=== PATIENT | male | born 1995 | race Caucasian/White ===

== ENCOUNTER 2020-12-21 16:37 | Emergency (ER) | payer SELFPAY ==
--- OUTSIDE RECORDS SUMMARY | 2020-12-21 17:07 | XMS REPORT | Continuity of Care Document ---
:1995 Author Organization [facility] t Address [address] [place] [address] Care Team Providers Name Role Phone Humberto MARTIN Attending Clinician Jordan Peña NP Attending Clinician Doctor Unassigned, Name Attending Clinician Unavailable Problems This patient has no known problems. Allergies, Adverse Reactions, Alerts This patient has no known allergies or adverse reactions. Medications This patient has no known medications. Procedures This patient has no known procedures. Encounters Start End Encounter Admission Attending Care Care Encounter Source Date/Time Date/Time Type Type Clinicians Facility Department ID 2020-04-18 2020-04-18 [id number] 03:14:19 04:37:00 Darian Beck [id number] [place] [id number] [place] [id number] 2020-01-13 2020-01-14 Emergency Casey [facility] [id number] 22:34:02 00:22:00 Stella Beck [id number] [place] [id number] [place] [id number] 2020-01-13 2020-01-13 Orders Doctor MARIANELA [id number] 00:00:00 00:00:00 Only Unassigned, ROSALINO [id number] [place] [id number] 2019-06-23 2019-06-23 Emergency [facility] [id number] 19:50:03 21:26:00 Stella Beck [id number] [place] [id number] [place] [id number] Results This patient has no known results.
[2020-12-21 18:17] LABS: Absolute Lymphocytes (CBC) 1.5 K/uL (0.7-4.9); Basophils % 0.4 % (0-1.3); Hematocrit 39.3 % (39.6-49.0); Lymphocytes % 19.7 % (15.3-44.8); RBC Red Blood Cell Count 4.53 M/uL (4.33-5.43)
[2020-12-21 18:18] LABS: Protime INR 1.02
--- NOTE | 2020-12-21 18:34 | RAD REPORT ---
EXAM DESCRIPTION: Cande Single View12/21/2020 6:19 pm CLINICAL HISTORY: Syncope COMPARISON: none FINDINGS: The lungs appear clear of acute infiltrate. The heart is normal size IMPRESSION: No acute abnormalities displayed
[2020-12-21 18:36] LABS: ALT/SGPT 17 U/L (12-78); AST/SGOT 16 U/L (15-37); Albumin 3.9 g/dL (3.4-5.0); Alkaline Phosphatase 79 U/L (45-117); BUN Blood Urea Nitrogen 10 mg/dL (7-18); Bicarbonate 30 mmol/L (21-32); Bilirubin Direct 0.3 mg/dL (0-0.2); Bilirubin Total 1.7 mg/dL (0.2-1.0); Glucose Level 86 mg/dL (74-106); Magnesium 2.1 mg/dL (1.8-2.4); NT PRO-BNP 19 pg/mL (<125); Potassium 4.2 mmol/L (3.5-5.1); Protein, Total 7.7 g/dL (6.4-8.2); Sodium Level 139 mmol/L (136-145); Troponin (Emerg Dept Use Only) < 0.02 ng/mL (0.0-0.045)
--- NOTE | 2020-12-21 19:02 | ER ---
Nurse's Notes [facility] Name: Joe Velasquez Age: 25 yrs Sex: Male : 1995 Arrival Date: 12/21/2020 Time: 16:40 Bed 13 Private MD: Diagnosis: Syncope and collapse Presentation: 12/21 16:53 Chief complaint: Patient states: "about an hour ago I got real light headed and both my jd3 hands are feeling really weak and my legs feel like lead.". Coronavirus screen: cough unrelated to allergies, Client presents with at least one sign or symptom that may indicate coronavirus-19. Standard/surgical mask placed on the client. Provider contacted for isolation considerations. Ebola Screen: Patient negative for fever greater than or equal to 101.5 degrees Fahrenheit, and additional compatible Ebola Virus Disease symptoms. Initial Sepsis Screen: Does the patient meet any 2 criteria? No. Patient's initial sepsis screen is negative. Does the patient have a suspected source of infection? No. Patient's initial sepsis screen is negative. Risk Assessment: Do you want to hurt yourself or someone else? Patient reports no desire to harm self or others. Onset of symptoms was December 21, 2020. 16:53 Method Of Arrival: Ambulatory jd3 16:53 Acuity: FABRIZIO 3 jd3 Triage Assessment: 19:31 General: Appears in no apparent distress. Behavior is calm, cooperative, appropriate ll2 for age. Historical: - Allergies: 16:55 No Known Allergies; jd3 - Home Meds: 16:55 None [Active]; jd3 - PMHx: 16:55 testicular cyste; jd3 - PSHx: 16:55 None; jd3 - Immunization history:: Adult Immunizations up to date. - Social history:: Smoking status: Patient/guardian denies using tobacco, Stopped _ months ago 6. Screenin:30 Abuse screen: Denies threats or abuse. Nutritional screening: No deficits noted. ll2 Tuberculosis screening: No symptoms or risk factors identified. Fall Risk None identified. Vital Signs: 16:55 BP 118 / 75; Pulse 90; Resp 17 S; Temp 98.3(TE); Pulse Ox 100% on R/A; Weight 72.57 kg jd3 (R); Height 5 ft. 11 in. (180.34 cm) (R); Pain 0/10; 18:31 BP 112 / 65; Pulse 57; Resp 15; Pulse Ox 100% on R/A; 5 16:55 Body Mass Index 22.32 (72.57 kg, 180.34 cm) [facility] ED Course: 16:40 Patient arrived in ED. as 16:54 Triage completed. [facility] 16:56 Arm band placed on. [facility] 16:58 Jimenez Chambers PA is PHCP. [facility] 16:58 Cornelius Crowley MD is Attending Physician. [facility] 17:13 Parviz Canchola, RN is Primary Nurse. bp 18:17 Patient has correct armband on for positive identification. Bed in low position. Call [facility] light in reach. Side rails up X2. Warm blanket given. youth nutritional monitor on. Pulse ox on. NIBP on. 18:18 EKG done, by ED staff, reviewed by Cornelius Crowley MD. [facility] 18:19 XRAY Chest (1 view) In Process Unspecified. EDMS 19:30 No provider procedures requiring assistance completed. IV discontinued, intact, ll2 bleeding controlled, No redness/swelling at site. Pressure dressing applied. Administered Medications: No medications were administered Outcome: 19:02 Discharge ordered by MD. [facility] 19:30 Discharged to home ambulatory. ll2 19:30 Condition: stable 19:30 Discharge instructions given to patient, Instructed on discharge instructions, follow up and referral plans. Demonstrated understanding of instructions, follow-up care. 19:31 Patient left the ED. ll2 Signatures: Dispatcher [employer] EDPR Jimenez Chambers PA PA Jamia Jackson Maria [facility] Juan Trevino RN RN [facility] Parviz Canchola, RN RN Mela Rodrigez, AYUSH RN ll2 Corrections: (The following items were deleted from the chart) 17:31 16:53 Acuity: FABRIZIO 4 [place] [address]
--- NOTE | 2020-12-21 19:03 | EDPHYS ---
Physician Documentation [facility] Name: Joe Velasquez Age: 25 yrs Sex: Male : 1995 Arrival Date: 12/21/2020 Time: 16:40 Bed 13 Private MD: ED Physician Cornelius Crowley HPI: 12/21 17:25 This 25 yrs old Male presents to ER via Ambulatory with complaints of jmm lightheaded, arms/legs heavy. 17:25 The patient has experienced near-syncope. Onset: The symptoms/episode began/occurred jmm acutely, at 16:00. Onset: The symptoms/episode began/occurred acutely. Associated signs and symptoms: Pertinent positives: visual changes. This is a 25 year old male with no chronic medical conditions that presents to the ED with complaints of altered sensation in all four extremities along with visual changes. This occurred after the patient was blowing his nose and saw blood. Patient states symptoms have no improved. . Historical: - Allergies: 16:55 No Known Allergies; jd3 - Home Meds: 16:55 None [Active]; jd3 - PMHx: 16:55 testicular cyste; jd3 - PSHx: 16:55 None; jd3 - Immunization history:: Adult Immunizations up to date. - Social history:: Smoking status: Patient/guardian denies using tobacco, Stopped _ months ago 6. ROS: 17:25 Constitutional: Negative for fever, chills, and weight loss, Cardiovascular: Negative jmm for chest pain, palpitations, and edema, Respiratory: Negative for shortness of breath, cough, wheezing, and pleuritic chest pain. 17:25 MS/extremity: Positive for paresthesias. 17:25 All other systems are negative. Exam: 17:25 Constitutional: This is a well developed, well nourished patient who is awake, alert, jmm and in no acute distress. Head/Face: atraumatic. Eyes: EOMI, no conjunctival erythema appreciated ENT: Moist Mucus Membranes Neck: Trachea midline, Supple Chest/axilla: Normal chest wall appearance and motion. Cardiovascular: Regular rate and rhythm. No edema appreciated Respiratory: Normal respirations, no respiratory distress appreciated Abdomen/GI: Non distended, soft Back: Normal ROM Skin: General appearance color normal MS/ Extremity: Moves all extremities, no obvious deformities appreciated, no edema noted to the lower extremities Neuro: Awake and alert, normal gait Psych: Behavior is normal, Mood is normal, Patient is cooperative and pleasant Vital Signs: 16:55 BP 118 / 75; Pulse 90; Resp 17 S; Temp 98.3(TE); Pulse Ox 100% on R/A; Weight 72.57 kg jd3 (R); Height 5 ft. 11 in. (180.34 cm) (R); Pain 0/10; 18:31 BP 112 / 65; Pulse 57; Resp 15; Pulse Ox 100% on R/A; mh5 16:55 Body Mass Index 22.32 (72.57 kg, 180.34 cm) jd3 MDM: 17:[address] [facility] 18:58 Data reviewed: vital signs, nurses notes. Counseling: I had a detailed discussion with valentine the patient and/or guardian regarding: the historical points, exam findings, and any diagnostic results supporting the discharge/admit diagnosis, lab results, radiology results, the need for outpatient follow up, to return to the emergency department if symptoms worsen or persist or if there are any questions or concerns that arise at home. ED course: Symptoms have improved. Most likely pre syncope. Patient had another pre syncopal episode during blood draw. Patient is advised to follow up with pcp and otherwise given strict return precautions. Patient understood and agrees with the plan of care. . 19:22 ED course: PERC negative. [facility] 12/21 17: Order name: Basic Metabolic Panel [facility] 12/21 17:27 Order name: CBC with Diff [facility] 12/21 17: Order name: LFT's [facility] 12/21 17: Order name: Magnesium [facility] 12/21 17:27 Order name: NT PRO-BNP [facility] 12/21 17: Order name: PT-INR [facility] 12/21 17: Order name: Troponin (emerg Dept Use Only); Complete Time: 18:39 [facility] 12/21 16: Order name: XRAY Chest (1 view); Complete Time: 18:39 [facility] 12/21 17: Order name: Basic Metabolic Panel; Complete Time: 18:39 [facility] 12/21 17: Order name: CBC with Automated Diff; Complete Time: 18:33 [facility] 12/21 17: Order name: Liver (Hepatic) Function; Complete Time: 18:39 EDMS 12/21 17:27 Order name: Magnesium; Complete Time: 18:39 [facility] 12/21 17:27 Order name: NT PRO-BNP; Complete Time: 18:39 [facility] 12/21 17:27 Order name: Protime (+INR); Complete Time: 18:33 [facility]AL 12/21 17:27 Order name: EKG; Complete Time: 17:28 [facility] 12/21 17:27 Order name: Cardiac monitoring; Complete Time: 17:52 [facility] 12/21 17:27 Order name: EKG - Nurse/Tech; Complete Time: 18:17 [facility] 12/21 17:27 Order name: IV Saline Lock; Complete Time: 18:20 [facility] 12/21 17:27 Order name: Labs collected and sent; Complete Time: 18:20 [facility] 12/21 17:27 Order name: O2 Per Protocol; Complete Time: 17:52 [facility] 12/21 17:27 Order name: O2 Sat Monitoring; Complete Time: 17:52 jm Administered Medications: No medications were administered Disposition: 12/22 13:08 Co-signature as Attending Physician, Cornelius Crowley MD. rn Disposition: 12/21/20 19:02 Discharged to Home. Impression: Syncope and collapse. - Condition is Stable. - Discharge Instructions: Syncope. - Medication Reconciliation Form, Thank You Letter, Antibiotic Education, Prescription Opioid Use form. - Follow up: Private Physician; When: 2 - 3 days; Reason: Recheck today's complaints, Continuance of care, Re-evaluation by your physician. Signatures: Dispatcher [employer] [facility] Jimenez Chambers PA PA [facility] Cornelius Crowley MD MD rn Davies, Jonathon, RN RN jd3 Mela Fonseca RN RN ll2 Corrections: (The following items were deleted from the chart) 12/21 19:31 19:02 12/21/2020 19:02 Discharged to Home. Impression: Syncope and collapse. Condition ll2 is Stable. Forms are Medication Reconciliation Form, Thank You Letter, Antibiotic Education, Prescription Opioid Use. Follow up: Private Physician; When: 2 - 3 days; Reason: Recheck today's complaints, Continuance of care, Re-evaluation by your physician. [facility]
[2020-12-21 19:39] VITALS: TEMP 98.3; O2SAT 100
[2020-12-21 19:41] VITALS: BP 112/65
== END 2020-12-21 19:31 | disposition home or self-care (01) ==
LOC: ER 16:37
DX: R55 Syncope and collapse (principal); R20.2 Paresthesia of skin; Z87.891 Personal history of nicotine dependence
CPT/HCPCS: 36415; 71045; 80048; 80076; 83735; 83880; 84484; 85025; 85610; 99284

== ENCOUNTER 2021-06-20 00:12 | Emergency (ER) | payer SELFPAY ==
--- OUTSIDE RECORDS SUMMARY | 2021-06-20 00:16 | XMS REPORT | Continuity of Care Document ---
:1995 Author Organization [facility] t Address [facility] [place] [address] [place] [address] Care Team Providers Name Role Phone Humberto MARTIN Attending Clinician Casey TORRES G Attending Clinician Doctor Unassigned, Name Attending Clinician Unavailable Problems Condition Condition Condition Status Onset Resolution Last Treating Co mments Source Name Details Category Date Date Treatment Clinician Date Schizophre Schizophre Problem Active [facility] roshan roshan 6-23 da [facility] Anger Anger Problem Active [place] management Management 3-25 da therapy Therapy [facility]:00: [facility] Allergies, Adverse Reactions, Alerts This patient has no known allergies or adverse reactions. Medications Ordered Filled Start Stop Current Ordering Indication Dosage Frequency Signature Comments Components Source Medication Medication Date Date Medication? Clinician (SIG) Name Name penicillin penicillin No penicillin [place] V potassium V potassium V d a 500 mg 500 mg potassium [place] p tablet TAKE tablet TAKE 500 mg al 1 TABLET BY 1 TABLET BY tablet Health MOUTH 4 MOUTH 4 TAKE 1 Outreac TIMES DAILY TIMES DAILY TABLET BY h MOUTH 4 Program TIMES DAILY Procedures This patient has no known procedures. Plan of Care Planned Activity Planned Date Details Comments Source Instructions [facility] Program Encounters Start End Encounter Admission Attending Care Care Encounter Source Date/Time Date/Time Type Type Clinicians Facility Department ID 2021-05-14 2021-05-14 [place] SHANE [place] - [id number] M [facility] 00:00:00 00:00:00 Siobhan Cuello SOFTWARE ENGINEERING PROJECT MANAGER: [id number] [employer] Epi scop [place] [address] [facility] [id number] , Ph. 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 Program ([id number]) -2021-04-30 2021-04-30 Gu[place] SHANE [place] - [id number] M [place] 00:00:00 00:00:00 Siobhan Cuello SOFTWARE ENGINEERING PROJECT MANAGER: [id number] [employer] Epi scop [address] [facility] Program [phone] , Ph. 2021-04-23 2021-04-23 Guan[place] SHANE [place] - [id number] M at[place] 00:00:00 00:00:00 Siobhan Cuello SOFTWARE ENGINEERING PROJECT MANAGER: [id number] [employer] Epi sc[address] [facility] [id number] , Ph. 2021-04-16 2021-04-16 Gu[place] SHANE [place] - [id number] M at[place] 00:00:00 00:00:00 Siobhan Cuello SOFTWARE ENGINEERING PROJECT MANAGER: [id number] [employer] Epi sc[address] [facility] [address] [facility] [place] Program [phone] , Ph. 2021-04-09 2021-04-09 Gu[place] SH[place] - [id number] M at[place] 00:00:00 00:00:00 Siobhan Cuello SOFTWARE ENGINEERING PROJECT MANAGER: [id number] [employer] Epi sc[address] [facility] [address] [facility] [place] Program [phone] , Ph. 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 Program (979) 2021-03-26 2021-03-26 Gu[place] - [id number] M at[place] 00:00:00 00:00:00 Siobhan Cuello SOFTWARE ENGINEERING PROJECT MANAGER: [id number] [employer] Epi sc[address] [facility] [address] [facility] [place] Program [id number] , Ph. 2021-03-12 2021-03-12 Guan[place] SHANE [place] - [id number] M at[place] 00:00:00 00:00:00 Siobhan Cuello SOFTWARE ENGINEERING PROJECT MANAGER: [id number] [employer] Epi scop [address] [facility] [address], [facility] [place] Program [phone] , Ph. 2021-02-26 2021-02-26 Guan[place]ito SHANE [place] - [id number] M at[place] 00:00:00 00:00:00 Siobhan Cuello SOFTWARE ENGINEERING PROJECT MANAGER: [id number] [employer] Epi sc[address] [facility] [address], [facility] [place] Program [id number] , Ph. 2021-01-29 2021-01-29 Gu[place] - [id number] Radha atagor 00:00:00 00:00:00 Giancarlo Cuelloagorda cassandra SOFTWARE ENGINEERING PROJECT MANAGER: [id number] [employer] Epi scop [address] [facility] [address], [facility] [place] Program [phone] , Ph. 2021-01-23 2021-01-23 Gu[place] - [id number] Radha atagor 00:00:00 00:00:00 Kristian Cuellorda da SOFTWARE ENGINEERING PROJECT MANAGER: [id number] [employer] Epi scop [address] [facility] [address], [facility] [place] Program [phone] , Ph. 2020-04-18 2020-04-18 Emergency [facility] [id number] 03:14:19 04:37:00 Darian Beck [id number] [place] [id number] [place] [id number] 2020-01-13 2020-01-[address] [facility] [id number] 22:34:02 00:22:00 Stella Beck [id number] [place] [id number] [place] [id number] 2020-01-13 2020-01-13 Orders Doctor MARIANELA [id number] 00:00:00 00:00:00 Only Unassigned, ROSALINO [id number] [place] [facility] [id number] 2019-06-23 2019-06-[address] [facility] [id number] 19:50:03 21:26:00 Stella Beck [id number] [place] [id number] [place] [id number] Results This patient has no known results.
[2021-06-20 01:34] LABS: Urine Blood Negative (Negative); Urine Glucose Negative (Negative); Urine Protein Negative (Negative)
--- NOTE | 2021-06-20 02:23 | ER ---
Nurse's Notes [facility] Name: Joe Velasquez Age: 26 yrs Sex: Male : 1995 Arrival Date: 06/20/2021 Time: 00:16 Bed 8 Private MD: Diagnosis: Left testicular pain;Scrotal varices Presentation: 06/20 00:24 Chief complaint: Patient states: Testicular pain x 4 hrs. 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 I saw a urologist and he basically told me to do insurance fraud and get the surgery done and so I never did. ". Coronavirus screen: Client denies travel out of the [place] in the last 14 days. At this time, unable to obtain information related to travel outside the [place] Ebola Screen: Patient negative for fever greater than or equal to 101.5 degrees Fahrenheit, and additional compatible Ebola Virus Disease symptoms Patient denies exposure to infectious person. Patient denies travel to an Ebola-affected area in the 21 days before illness onset. Initial Sepsis Screen: Does the patient meet any 2 criteria? No. Patient's initial sepsis screen is negative. Does the patient have a suspected source of infection? No. Patient's initial sepsis screen is negative. Risk Assessment: Do you want to hurt yourself or someone else? Patient reports no desire to harm self or others. Onset of symptoms was June 19, 2021 at 20:00. 00:24 Method Of Arrival: Ambulatory kg 00:24 Acuity: FABRIZIO 3 kg Triage Assessment: 00:29 General: Appears in no apparent distress. Behavior is calm, cooperative, appropriate kg for age, quiet. Pain: Complains of pain in testicular. Historical: - Allergies: 00:27 No Known Allergies; kg - Home Meds: 00:27 acetaminophen 325 mg Oral tab [Active]; kg - PMHx: 00:27 testicular cyste; testicular varicocle; kg 00:29 Anxiety; kg - PSHx: 00:27 None; kg - Immunization history:: Adult Immunizations not up to date, Client reports having NOT received the Covid vaccine. - Social history:: Smoking status: Patient reports the use of cigarette tobacco products, denies chronic smoking, but will smoke occasionally, Reported history of juuling and/or vaping. Screenin:30 Abuse screen: Denies threats or abuse. Denies injuries from another. Nutritional kg screening: No deficits noted. Tuberculosis screening: No symptoms or risk factors identified. Fall Risk None identified. Assessment: 00:30 General: Appears in no apparent distress. uncomfortable, Behavior is calm, cooperative, jb4 appropriate for age. Pain: Complains of pain in left testicle and right testicle Pain does not radiate. Pain currently is 8 out of 10 on a pain scale. Neuro: Level of Consciousness is awake, alert, obeys commands, Oriented to person, place, time, situation. Cardiovascular: Patient's skin is warm and dry. Respiratory: Airway is patent Respiratory effort is even, unlabored, Respiratory pattern is regular, symmetrical. GI: No signs and/or symptoms were reported involving the gastrointestinal system. : No signs and/or symptoms were reported regarding the genitourinary system. EENT: No signs and/or symptoms were reported regarding the EENT system. Derm: Skin is intact, Skin is pink, warm \\T\\ dry. Musculoskeletal: Circulation, motion, and sensation intact. Range of motion: intact in all extremities. 01:30 Reassessment: Patient appears in no apparent distress at this time. Patient and/or jb4 family updated on plan of care and expected duration. Pain level reassessed. Patient is alert, oriented x 3, equal unlabored respirations, skin warm/dry/pink. 02:01 Reassessment: Patient appears in no apparent distress at this time. Patient and/or jb4 family updated on plan of care and expected duration. Pain level reassessed. Patient is alert, oriented x 3, equal unlabored respirations, skin warm/dry/pink. Vital Signs: 00:24 BP 125 / 75; Pulse 76; Resp 18; Temp 98.4(O); Pulse Ox 100% on R/A; Weight 68.04 kg kg (R); Height 5 ft. 11 in. (180.34 cm) (R); Pain 8/10; 02:38 BP 109 / 69; Pulse 63; Resp 16; Pulse Ox 99% on R/A; jb4 00:24 Body Mass Index 20.92 (68.04 kg, 180.34 cm) kg ED Course: 00:16 Patient arrived in ED. wm 00:27 Triage completed. kg 00:29 Arm band placed on right wrist. kg 00:30 Lani Day is Attending Physician. sp3 00:30 Patient has correct armband on for positive identification. kg 00:30 No provider procedures requiring assistance completed. kg 01:19 US Scrotum Testicles In Process Unspecified. EDMS 02:01 Alpesh Queen, RN is Primary Nurse. jb4 02:38 Patient did not have IV access during this emergency room visit. jb4 Administered Medications: No medications were administered Outcome: 02:22 Discharge ordered by MD. sp3 02:38 Discharged to home ambulatory. jb4 02:38 Condition: stable 02:38 Discharge instructions given to patient, Instructed on discharge instructions, follow up and referral plans. Demonstrated understanding of instructions, follow-up care. 02:39 Patient left the ED. jb4 Signatures: Dispatcher [employer] EDNC Alpesh Queen, RN RN jb4 Ruth Alegria, AYUSH RN kg Gucci Myrna Lani Day sp3
--- NOTE | 2021-06-20 02:23 | EDPHYS ---
Physician Documentation [facility] Name: Joe Velasquez Age: 26 yrs Sex: Male : 1995 Arrival Date: 06/20/2021 Time: 00:16 Bed 8 Private MD: ED Physician Lani Day HPI: 06/20 01:13 This 26 yrs old Male presents to ER via Ambulatory with complaints of sp3 Testicular Pain - Diagnosed w/Testicular Vein Entanglement. 01:13 26-year-old male with history of hydrocele in the left testicle diagnosed approximately sp3 2 years ago status post work injury now presents with continued acute on chronic left testicular pain. Patient states that he takes [id number] Tylenol and Motrin for his pain over the last 2 years and currently does not wish to have any more pain medicine. He is mainly here to obtain ultrasound to make sure there is no significant findings. Patient has no insurance and no urologist though his last urologist did state that he would do surgery if he can either afford it or obtain insurance. Patient denies any injury, urinary frequency or dysuria, abdominal pain, nausea, vomiting, diarrhea, fever, URI symptoms, chest pain, back pain, or any other ROS at this time.. Historical: - Allergies: 00:27 No Known Allergies; kg - Home Meds: 00:27 acetaminophen 325 mg Oral tab [Active]; kg - PMHx: 00:27 testicular cyste; testicular varicocle; kg 00:29 Anxiety; kg - PSHx: 00:27 None; kg - Immunization history:: Adult Immunizations not up to date, Client reports having NOT received the Covid vaccine. - Social history:: Smoking status: Patient reports the use of cigarette tobacco products, denies chronic smoking, but will smoke occasionally, Reported history of juuling and/or vaping. ROS: 01:15 Constitutional: Negative for fever, chills, and weight loss, Eyes: Negative for injury, sp3 pain, redness, and discharge, Neck: Negative for injury, pain, and swelling, Cardiovascular: Negative for chest pain, palpitations, and edema, Respiratory: Negative for shortness of breath, cough, wheezing, and pleuritic chest pain, Abdomen/GI: Negative for abdominal pain, nausea, vomiting, diarrhea, and constipation, Back: Negative for injury and pain, MS/Extremity: Negative for injury and deformity, Skin: Negative for injury, rash, and discoloration, Neuro: Negative for headache, weakness, numbness, tingling, and seizure. 01:15 : Positive for testicular pain Negative for urinary symptoms, urinary frequency, small amounts, hematuria, flank pain, burning with urination, difficulty urinating, foul smelling urine, penile discharge, penile pain. Exam: 01:15 Constitutional: This is a well developed, well nourished patient who is awake, alert, sp3 and in no acute distress. Cardiovascular: Regular rate and rhythm with a normal S1 and S2. No gallops, murmurs, or rubs. Normal PMI, no JVD. No pulse deficits. Respiratory: Lungs have equal breath sounds bilaterally, clear to auscultation and percussion. No rales, rhonchi or wheezes noted. No increased work of breathing, no retractions or nasal flaring. Abdomen/GI: Soft, non-tender, with normal bowel sounds. No distension or tympany. No guarding or rebound. No evidence of tenderness throughout. Back: No spinal tenderness. No costovertebral tenderness. Full range of motion. Skin: Warm, dry with normal turgor. Normal color with no rashes, no lesions, and no evidence of cellulitis. 01:15 : Right testicle is normal. Left testicle demonstrates hydrocele and swelling on the left side. Penis is uncircumcised and normal with no discharge.. Vital Signs: 00:24 BP 125 / 75; Pulse 76; Resp 18; Temp 98.4(O); Pulse Ox 100% on R/A; Weight 68.04 kg kg (R); Height 5 ft. 11 in. (180.34 cm) (R); Pain 8/10; 02:38 BP 109 / 69; Pulse 63; Resp 16; Pulse Ox 99% on R/A; jb4 00:24 Body Mass Index 20.92 (68.04 kg, 180.34 cm) kg MDM: 00:43 Patient medically screened. sp3 01:16 Data reviewed: vital signs, nurses notes, lab test result(s), radiologic studies. ED sp3 course: 26-year-old male with left testicular hydrocele and acute on chronic pain. Will obtain ultrasound and urinalysis to ascertain if there are any new acute findings. Patient declined pain medications. At this time I am not suspicious for sepsis, shock, testicular torsion, bowel pathology, ureterolithiasis, renal failure, or any other critical illness at this time. If ultrasound demonstrates no acute findings, we will discharge patient home at this time.. 02:20 ED course: Ultrasound demonstrates bilateral varicoceles with left greater than right. sp3 No torsion, abscess, other critical findings are present. Will discharge patient this time as he continues to decline oral pain medications. UA is normal.. 06/20 01:33 Order name: Urine Dipstick-Ancillary; Complete Time: 02:05 EDMS 06/20 00:44 Order name: US Scrotum Testicles sp3 Administered Medications: No medications were administered Disposition Summary: 06/20/21 02:22 Discharge Ordered Location: Home sp3 Condition: Stable sp3 Diagnosis - Left testicular pain sp3 - Scrotal varices sp3 Followup: sp3 - With: Private Physician - When: - Reason: Re-evaluation by your physician Discharge Instructions: - Discharge Summary Sheet sp3 - Varicocele sp3 Forms: - Medication Reconciliation Form sp3 - Thank You Letter sp3 - Antibiotic Education sp3 - Prescription Opioid Use sp3 Signatures: Dispatcher [employer] EDPR Ruth Alegria, RN RN Lani Pompa sp3
[2021-06-20 03:25] VITALS: TEMP 98.4
[2021-06-20 03:27] VITALS: BP 109/69; O2SAT 99
--- NOTE | 2021-06-20 10:26 | RAD REPORT ---
EXAM DESCRIPTION: US - Scrotum Testicles - 06/20/2021 2:48 am ADDENDUM #1 These findings were discussed with the hides soaker, Lola Blancas on 06/20/2021 at 1: 51 AM cent ral time Electronically signed by: Maria Isabel Delgado DO 06/20/2021 6:05 AM CDT End of Addendum US SCROTUM CLINICAL HISTORY: 26 years Male Swelling;Pain TECHNIQUE: Sagittal and transverse ultrasound imaging and measurement of bilateral testicles with co veronika flow was performed on 06/20/2021 at 1: 00 AM. COMPARISON: None. FINDINGS: The right testicle measures 4.7 x 2.4 x 2.9 cm and is homogeneous in echogenicity. No fo avinash masses are identified. The right epididymal head could not be clearly identified to measure on this examination. Doppler imaging demonstrates normal pulsed and color Doppler flow to the right test icle. There is a right-sided hydrocele. The left testicle measures 3.6 x 2.4 x 3.7 cm and is homogeneous in echogenicity. No focal masses are identified. The left epididymal head measures 1.4 x 0.8 cm. Doppler imaging demonstrates normal pu lsed and color Doppler flow to the left testicle. Images obtained during Valsalva reveal dilatation o f the left pampiniform plexus suggesting a left-sided varicocele. However, no venous measurements wer e obtained. There is a small focal area of increased echogenicity posterior to the left testicle with in the scrotal sac of unclear etiology. IMPRESSION: 1. Normal sonographic evaluation of the testicles. 2. Findings suggest a left-sided varicocele. As noted above, however, venous measurements were not ob tained during Valsalva. 3. Right-sided hydrocele. 4. The right epididymis is not clearly identified on this examination. 5. Nonspecific small focal area of increased echogenicity posterior to the left testicle within the s crotal sac. Electronically signed by: Maria Isabel Delgado DO 06/20/2021 1:58 AM CDT Due to temporary technical issues with the PACS/Fluency reporting system, reports are being signed by the in house radiologist without review as a courtesy to ensure prompt reporting. The interpreting r adiologist is fully responsible for the content of the report.
== END 2021-06-20 02:39 | disposition home or self-care (01) ==
LOC: ER 00:12
DX: I86.1 Scrotal varices (principal); F17.210 Nicotine dependence, cigarettes, uncomplicated
CPT/HCPCS: 76870; 81003; 99283

== ENCOUNTER 2021-12-24 14:26 | Emergency (ER) | payer SELFPAY ==
--- OUTSIDE RECORDS SUMMARY | 2021-12-24 14:29 | XMS REPORT | Continuity of Care Document ---
:1995 Author Organization [facility] t Address [address] [place] [address] [address]. Esc[address] [place] [address] Care Team Providers Name Role Phone PCP, DOES NOT HAVE A Primary Care Physician Unavailable Aneta Attending Clinician Unavailable Humberto MARTIN Attending Clinician HUMBERTO Attending Clinician Unavailable Casey TORRES G Attending Clinician Doctor Unassigned, Name Attending Clinician Unavailable Aneta Admitting Clinician Unavailable HUMBERTO Admitting Clinician Unavailable Payers Payer Name Policy Type Policy Number Effective Date Expiration Date S roscoe [facility] [id number] 2021 [employer] [place] 00:00:00 (MEDICAID HMO) Problems Condition Condition Condition Status Onset Resolution Last Treating Co mments Source Name Details Category Date Date Treatment Clinician Date Schizophre Schizophre Problem Active [place] roshan roshan 6-23 [facility] Anger Anger Problem Active [place] management Management 3-25 da therapy Therapy [facility]: [facility] No known No known Disease Unive rs active active ity of problems problems [facility] Allergies, Adverse Reactions, Alerts Allergy Allergy Status Severity Reaction(s) Onset Inactive Treating Comm ents Source Name Type Date Date Clinician NO KNOWN Drug Active Univers ALLERGIE Class ity of S [facility] Social History Social Habit Start Date Stop Date Quantity Comments Source Sex Assigned At Uni versity [facility] Exposure to SARS-CoV-2 Not sure Un [facility]vers[facility] [place] (event) Medical Branch Smoking Status Start Date Stop Date Source Unknown if ever smoked Universit y [facility] Medications Ordered Filled Start Stop Current Ordering Indication Dosage Frequency Signature Comments Components Source Medication Medication Date Date Medication? Clinician (SIG) Name Name ibuprofen Yes [id number] 600mg Take 1 Univers 600 mg 04-18 [id number] tablet by ity of tablet 00:00: mouth [place] 00 every 8 Medical (eight) Branch hours as needed for Pain (scale 1-3). dexamethaso 2019- No 10mg 10 mg, Uni vers ne 01-1315 Intramuscu ity of (DECADRON 05:15: 04:49 lar, ONCE, [place] PHOSPHATE) 00 :00 1 dose, Medica l injection [facility] 10 mg 01/14/20 at 0015, Routine ibuprofen 2019- No 600mg 600 mg, Uni vers (IBU) 06-24 Oral, ity of tablet 600 03:00: 01:59 ONCE, 1 Parveen as mg 00 :00 dose, Fri [facility] 06/23/19 at Branch 2200, ELIDA etodolac 2019- No [id number] 300mg Take 1 U nivers 300 mg 06-23 capsule by ity of capsule 00:00: 04:59 mouth 3 [place] 00 :00 (three) Medical times Branch daily with meals for 5 days. No known No Univers medications ity [facility] No known No [facility] penicillin No penicillin [place] V potassium V potassium V d a 500 mg 500 mg potassium [place] p tablet TAKE tablet TAKE 500 mg al 1 TABLET BY 1 TABLET BY tablet Health MOUTH 4 MOUTH 4 TAKE 1 Outreac TIMES DAILY TIMES DAILY TABLET BY h MOUTH 4 Program TIMES DAILY Vital Signs Vital Name Observation Time Observation Value Comments Source Systolic blood 2020-04-18 08:19:00 141 mm[Hg] Univer sity of pressure [place] [facility] Diastolic blood 2020-04-18 08:19:00 92 mm[Hg] Unive rsity of pressure [place] [facility] Heart rate 2020-04-18 08:19:00 79 /min Universi ty [facility] [place] [facility] Body temperature 2020-04-18 08:19:00 36.56 Rocio Univ ersity of [place] [facility] Respiratory rate 2020-04-18 08:19:00 16 /min Univ ers[facility] [place] [facility] Body height 2020-04-18 08:19:00 180.3 cm [facility] [place] [facility] Body weight 2020-04-18 08:19:00 68.04 kg [facility] [place] [facility] BMI 2020-04-18 08:19:00 20.92 kg/m2 [facility] [place] [facility] Oxygen saturation in 2020-04-18 08:19:00 100 /min University of Arterial blood by [facility] avinash Pulse oximetry Branch Systolic blood 2020-04-18 08:19:00 141 mm[Hg] Univer sity of pressure [place] [facility] Diastolic blood 2020-04-18 08:19:00 92 mm[Hg] Unive rsity of pressure [place] [facility] Heart rate 2020-04-18 08:19:00 79 /min [facility]i [facility] [place] [facility] Body temperature 2020-04-18 08:19:00 36.56 Rocio Univ ers[facility] [place] [facility] Respiratory rate 2020-04-18 08:19:00 16 /min Univ ers[facility] [place] [facility] Body height 2020-04-18 08:19:00 180.3 cm [facility] [place] [facility] Body weight 2020-04-18 08:19:00 68.04 kg [facility] [place] [facility] BMI 2020-04-18 08:19:00 20.92 kg/m2 [facility] [place] [facility] Oxygen saturation in 2020-04-18 08:19:00 100 /min University of Arterial blood by [place] Medi avinash Pulse oximetry Branch Systolic blood 2020-01-14 03:29:00 136 mm[Hg] Univer sity of pressure [place] [facility] Diastolic blood 2020-01-14 03:29:00 82 mm[Hg] Unive rsity of pressure [place] [facility] Heart rate 2020-01-14 03:29:00 86 /min [facility]i [facility] [place] [facility] Body temperature 2020-01-14 03:29:00 36.5 Rocio Univ ers[facility] [place] [facility] Respiratory rate 2020-01-14 03:29:00 20 /min Univ ers[facility] [place] [facility] Body height 2020-01-14 03:29:00 180.3 cm [facility] [place] [facility] Body weight 2020-01-14 03:29:00 68.04 kg [facility] [place] [facility] BMI 2020-01-14 03:29:00 20.92 kg/m2 [facility] [place] [facility] Oxygen saturation in 2020-01-14 03:29:00 100 /min University of Arterial blood by [place] [employer] avinash Pulse oximetry Branch Systolic blood 2020-01-14 03:29:00 136 mm[Hg] Univer sity of pressure [place] [facility] Diastolic blood 2020-01-14 03:29:00 82 mm[Hg] Unive rsity of pressure [place] [facility] Heart rate 2020-01-14 03:29:00 86 /min [facility] [place] [facility] Body temperature 2020-01-14 03:29:00 36.5 Rocio Univ [facility] [place] [facility] Respiratory rate 2020-01-14 03:29:00 20 /min Univ [facility] [place] [facility] Body height 2020-01-14 03:29:00 180.3 cm [facility] [place] [facility] Body weight 2020-01-14 03:29:00 68.04 kg [facility] [place] [facility] BMI 2020-01-14 03:29:00 20.92 kg/m2 [facility] [place] [facility] Oxygen saturation in 2020-01-14 03:29:00 100 /min University of Arterial blood by [place] [employer] avinash Pulse oximetry Branch Systolic blood 2019-06-24 02:00:00 114 mm[Hg] Univer sity of pressure [place] [facility] Diastolic blood 2019-06-24 02:00:00 67 mm[Hg] Unive rsity of pressure [place] [facility] Heart rate 2019-06-24 02:00:00 79 /min [facility] [place] [facility] Respiratory rate 2019-06-24 02:00:00 18 /min Univ ers[facility] [place] [facility] Oxygen saturation in 2019-06-24 02:00:00 98 /min University of Arterial blood by [place] Medi avinash Pulse oximetry Branch Body temperature 2019-06-23 23:19:00 36.94 Rocio Univ [facility] [place] [facility] Body height 2019-06-23 23:19:00 180.3 cm [facility] [place] [facility] Body weight 2019-06-23 23:19:00 62.143 kg [facility] [place] [facility] BMI 2019-06-23 23:19:00 19.11 kg/m2 [facility] [place] [facility] Systolic blood 2019-06-24 02:00:00 114 mm[Hg] Univer sity of pressure [place] [facility] Diastolic blood 2019-06-24 02:00:00 67 mm[Hg] Unive rsity of pressure [place] [facility] Heart rate 2019-06-24 02:00:00 79 /min [facility]i [facility] [place] [facility] Respiratory rate 2019-06-24 02:00:00 18 /min [facility] Oxygen saturation in 2019-06-24 02:00:00 98 /min [facility] Arterial blood by [place] [facility] Pulse oximetry Branch Body temperature 2019-06-23 23:19:00 36.94 Rocio [facility] erseast [facility] [place] [facility] [place] Body height 2019-06-23 23:19:00 180.3 cm [facility] [place] [facility] Body weight 2019-06-23 23:19:00 62.143 kg [facility] [place] [facility] BMI 2019-06-23 23:19:00 19.11 kg/m2 [facility] [place] [facility] Procedures Procedure Date / Time Performed Performing Clinician Soursheila e XR SPINE THORACIC 2 VW 2020-04-18 08:52:23 Rosa Paul [facility]ast [facility] XR CERVICAL SPINE 3 VW 2020-04-18 08:52:23 [facility] XR ANKLE 3+ VW LEFT 2020-04-18 08:52:23 Rosa Paul [facility] [place] [facility] [place] XR SHOULDER 2+ VW LEFT 2020-04-18 08:52:23 [facility] [place] [facility] [place] NOTICE OF PRIVACY 2020-04-18 08:16:33 Doctor Unassigned, [facility] Name Medical Branch CONSENT/REFUSAL FOR 2020-04-18 08:14:51 Doctor Unassigned, No [facility] DIAGNOSIS AND Name Medical Branch TREATMENT RAPID STREP SCREEN FOR 2020-01-14 04:49:00 Stella Peña [facility] GROUP A Medical Branch NOTICE OF PRIVACY 2020-01-14 03:19:09 Doctor Unassigned, No [facility] Name [facility] CONSENT/REFUSAL FOR 2020-01-14 03:18:44 Doctor Unassigned, No [facility] DI[facility]IS AND Name [facility] TREATMENT URINALYSIS 2019-06-24 01:36:00 Stella Peña [facility] [place] [place] US TESTICULAR TORSION 2019-06-24 00:41:[address] [facility] Plan of Care Planned Activity Planned Date Details Comments Source Instructions [place] [facility] Health Outreach Program Encounters Start End Encounter Admission Attending Care Care Encounter Source Date/Time Date/Time Type Type Clinicians Facility Department ID 2021-12-24 2021-12-24 Outpatient Cuate_Sam CTJOSESITO [facility] 113 970- [place] 02:45:00 02:45:00 e [facility] 2021-12-22 2021-12-22 Outpatient Benmily_Sam [facility] 113 970- [place] 05:11:00 05:11:00 e [facility] 2021-05-15 2021-05-15 Outpatient Benson_Sam [facility] 113 970- [place] 02:35:00 02:35:00 e [id number] [facility] 2021-05-14 2021-05-14 Outpatient Benson_Sam [facility] 113 970- [place] 05:09:00 05:09:00 e [id number] [facility] 2021-05-14 2021-05-14 Guanakito [facility] [place] - [id number] [place] 00:00:00 00:00:00 Siobhan Cuello da OUTSIDE SALES ACCOUNT REPRESENTATIVE: [id number] Faith Epi scop [place] [address] [facility] [address], [facility] [phone] , Ph. 2021-05-07 2021-05-07 Out[address] Cuate_Arthurchrista [facility] 113 970- [place] 03:47:00 03:47:00 e [id number] [facility] 2021-05-07 2021-05-07 [place]an[place] - [id number] [place] 00:00:00 00:00:00 Siobhan Cuello da OUTSIDE SALES ACCOUNT REPRESENTATIVE: [id number] Faith Epis copy preparer [facility] [phone] h , Ph. Program ([id number]) 2021-04-30 2021-04-30 Outpatient Benson_Sam [facility] 113 970- [place] 04:15:00 04:15:00 e [id number] [facility] 2021-04-30 2021-04-30 [place] - [id number] [place] 00:00:00 00:00:00 Siobhan Cuello da OUTSIDE SALES ACCOUNT REPRESENTATIVE: [id number] Faith Epi scop US 59 [facility] Program [phone] , Ph. 2021-04-23 2021-04-23 Outpatient Benson_Sam [facility] 113 97 [place] 04:52:00 04:52:00 e [id number] da [facility] 2021-04-23 2021-04-23 [place] - [id number] [place] 00:00:00 00:00:00 Siobhan Cuello da OUTSIDE SALES ACCOUNT REPRESENTATIVE: [id number] Faith Epi scop US 59 [facility] Program [phone] , Ph. 2021-04-16 2021-04-16 Outpatient Benson_Sam [facility] 113 97 [place] 05:43:00 05:43:00 e [id number] da [facility] 2021-04-16 2021-04-16 [place] - [id number] M [place] 00:00:00 00:00:00 Siobhan Cuello da OUTSIDE SALES ACCOUNT REPRESENTATIVE: [id number] Faith Epi scop US [address] [facility] [place] Program [phone] , Ph. 2021-04-09 2021-04-09 Outpatient Teson_Sam [place] [facility] 113 970 [place] 02:57:00 02:57:00 e [id number] da [facility] 2021-04-09 2021-04-09 [place] - [id number] M [place] 00:00:00 00:00:00 Siobhan Cuello da OUTSIDE SALES ACCOUNT REPRESENTATIVE: [id number] Faith Epi scop US 59 [facility] [place] Program [phone] , Ph. 2021-04-02 2021-04-02 Outpatient Teson_Sam [place] [facility] 113 97 [place] 03:22:00 03:22:00 e [id number] da Episcop al [facility] Program 2021-04-02 2021-04-02 [place] - [id number] [place] 00:00:00 00:00:00 Siobhan Cuello da OUTSIDE SALES ACCOUNT REPRESENTATIVE: 1700 Faith Epis copy preparer [facility] [phone] h , Ph. Program ([id number]) 2021-03-26 2021-03-26 Outpatient TesonPraveena [place] [facility] 113 970 [place] 04:06:00 04:06:00 e [id number] da [facility]isc[facility] al [facility] Program 2021-03-26 2021-03-26 [place] - [id number] M [place] 00:00:00 00:00:00 Siobhan Cuello da OUTSIDE SALES ACCOUNT REPRESENTATIVE: [id number] Faith Epi scop US [address] [facility] [place] Program [phone] , Ph. 2021-03-12 2021-03-12 Outpatient Benson_Sam CTHOP [facility] 113 970 [place] 03:55:00 03:55:00 e [id number] [facility] 2021-03-12 2021-03-12 [place] MEJOSESITO [place] - [id number] M [place] 00:00:00 00:00:00 Siobhan Cuello da OUTSIDE SALES ACCOUNT REPRESENTATIVE: [id number] Faith Epi scop US [address] [facility] [address], [facility] [place] Program [phone] , Ph. 2021 2021 Outpatient Benson_Sam CTHOP [facility] 113 970- [place] 01:02:00 01:02:00 e [id number] [facility] 2021-02-26 2021-02-26 Outpatient Benson_Sam [facility] 113 97 [place] 04:02:00 04:02:00 e [id number] [facility] 2021-02-26 2021-02-26 [place] - [id number] [place] 00:00:00 00:00:00 Siobhan Cuello da OUTSIDE SALES ACCOUNT REPRESENTATIVE: [id number] Faith Epi scop US 59 [facility], [facility] [place] Program [phone] , Ph. 2021-01-30 2021-01-30 Outpatient Benson_Sam [facility] 113 970 [place] 01:02:00 01:02:00 e [id number] [facility] 2021-01-29 2021-01-29 Outpatient Benson_Sam [facility] 113 97 [place] 04:36:00 04:36:00 e [id number] [facility] 2021-01-29 2021-01-29 [place] MEJOSESIT[place] - [id number] M [place] 00:00:00 00:00:00 Siobhan Cuello da OUTSIDE SALES ACCOUNT REPRESENTATIVE: [id number] Faith Epi scop [place] 59 [facility], [facility] [place] Program [phone] , Ph. 2021-01-23 2021-01-23 Out[address] Cuate_Sam [facility] 113 [place] 02:28:00 02:28:00 e [id number] da [facility] 2021-01-23 2021-01-23 [facility] - [id number] [place] 00:00:00 00:00:00 Siobhan Cuello da OUTSIDE SALES ACCOUNT REPRESENTATIVE: [id number] Faith Epi scop [address] [facility] [address], Hand Outreac [place], [place] Program [phone] , Ph. 2021-01-20 2021-01-20 Outpatient Cuate_Sam [facility] 113 [place] 02:30:00 02:30:00 e [id number] da [facility] 2021-01-17 2021-01-[address] [facility] 113 [place] 03:53:00 03:53:00 e [id number] [facility] 2020-04-18 2020-04-18 Emergency [facility] [id number] Univers 03:14:19 04:37:00 Rosa Beck [id number] i ty [facility] 4.2.7.2.686 [facility] [id number] [address] 2020-04-18 2020-04-18 Emergency [facility] [id number] Univers 03:14:19 04:37:00 ROSA patterson [facility] 2020-04-18 2020-04-18 Emergency [facility] [id number] 03:14:19 04:37:00 Rosa Beck [id number] [place] 4.2.7.2.686 Rosalia [id number] [facility] 2020-01-13 2020-01-14 Emergency [facility] [id number] Univers 22:34:02 00:22:00 Stella Beck [id number] ity [facility] 4.2.7.2.686 [facility] [id number] [address] 2020-01-13 2020-01-14 Emergency [facility] [id number] 22:34:02 00:22:00 Stella [place] [id number] [place] 4.2.7.2.686 Rosalia [id number] 2020-01-13 2020-01-13 Emergency X [facility] ERT [id number] Univers 22:21:00 22:21:00 ity of [facility] 2020-01-13 2020-01-13 Orders Doctor MARIANELA [id number] Univers 00:00:00 00:00:00 Only Unassigned, ROSALINO [id number] ity of [place] [facility] 4.2.7.2.686 [facility] [id number] [address] 2020-01-13 2020-01-13 Orders Doctor MARIANELA [id number] 00:00:00 00:00:00 Only Unassigned, ROSALINO [id number] [place] [facility] 4.2.7.2.68 [id number] 2019-06-23 2019-06-23 Emergency [facility] [id number] [facility] 19:50:03 21:26:00 Stella Ortega [place] [id number] ity of [place] 4.2.7.2.686 [facility] [id number] [address] 2019-06-23 2019-06-23 Emergency [facility] [id number] 19:50:03 21:26:00 Stella Ortega [place] [id number] [place] 4.2.7.2.686 Rosalia [id number] Results Test Description Test Time Test Comments Results Result Comments Source RAPID STREP SCREEN FOR GROUP A 2020-01-14 05:10:00 Test Item Value Reference Range Interpretation Comme nts Streptococcus pyogenes (group A) antigen (test code = 59420- 2) Negative Negative Lab Interpretation (test code = 07563-1) [facility]00 Test Item Value Reference Range Interpretation Comments APPEARANCE (test code = Clear Clear [id number]) COLOR (test code = Yellow Yellow 3644359493) PH (test code = 4.8-8.0 3405068948) SP GRAVITY (test code = 1.003-1.030 8273847139) GLU U QUAL (test code = Negative Negative 2882602628) BLOOD (test code = Negative Negative 0004587855) KETONES (test code = Negative Negative 2971921471) PROTEIN (test code = Negative Negative 2887-8) UROBILIN (test code = 0.2 mg/dL See_Comment [Auto mated message] [id number]) The system [employer] generated this result transmit adolfo reference range : 0-1.0 mg/dL. Th e reference range was not used to interpret this result as normal/abnormal . BILIRUBIN (test code = Negative Negative 7960669081) NITRITE (test code = Negative Negative 4089572389) LEUK YAYA (test code = Negative Negative 2393885852) RBC/HPF (test code = See_Comment [Autom ated message] [id number]) The system [employer] generated this result transmit adolfo reference range : 0 - 3 HPF. The refe rence range was not u sed to interpret th is result as normal/abnormal . WBC/HPF (test code = See_Comment [Autom ated message] [id number]) The system [employer] generated this result transmit adolfo reference range : 0 - 5 HPF. The refe rence range was not u sed to interpret th is result as normal/abnormal . BACTERIA (test code = Negative Negative 2649212384) Lab Interpretation (test Normal code = 78277-2) [facility] TESTICULAR [id number] 01:52:48 Symmetrical arterial and venous flows within both testicles. Large right epididymal cyst measuring 2.2 cm with internal debris.Spermatocele is also a consideration. IMtaeo MD., have reviewed this study and agree with the abovereport.SCROTAL ULTRASOUND HISTORY: right testicular pain?. COMPARISON: None FINDINGS: RIGHT TESTICLE: Normal size, shape, and echotexture without a focal lesion.The right testicle measures 4.9 x 2.8 x 2.5 cm. LEFT TESTICLE: Normal size, shape, and echotexture. The left testiclemeasures 4.1 x 2.6 x 2.5 cm. A focus of calcification is noted within thesuperior left testicle. Doppler interrogation demonstrate symmetrical arterial and venous flowwithin both testicle. EPIDIDYMIDES: Large right epididymal cyst measuring 2.2 cm with internaldebris . BLOOD FLOW: Symmetric arterial waveforms. SCROTUM: No hydrocele. VARICOCELE: Bilateral varicoceles noted. [facility], Radiant Results Inft User - 06/23/2019 8:54 PM CDTSCROTAL ULTRASOUNDHISTORY: right testicular pain .COMPARISON: NoneFINDINGS: RIGHT TESTICLE: Normal size, shape, and echotexture without a focal lesion.The right testicle measures 4.9 x 2.8 x 2.5 cm. LEFT TESTICLE: Normal size, shape, and echotexture. The left testiclemeasures 4.1 x 2.6 x 2.5 cm. A focus of calcification is noted within thesuperior left testicle.Doppler interrogation demonstrate symmetrical arterial and venous flowwithin both testicle.EPIDIDYMIDES: Large right epididymal cyst measuring 2.2 cm with internaldebris .BLOOD FLOW: Symmetric arterialwaveforms.SCROTUM: No hydrocele.VARICOCELE: Bilateral varicoceles noted.IMPRESSIONSymmetrical arterial and venous flows within both testicles.Large right epididymal cyst measuring 2.2 cm with internal debris.Spermatocele is also a consideration.I, Silvina Lugo MD., have reviewed this study and agree with the abovereport.[facility] [place]
--- NOTE | 2021-12-24 16:09 | RAD REPORT ---
EXAM DESCRIPTION: US - Scrotum Testicles - 12/24/2021 3:56 pm CLINICAL HISTORY: PAIN COMPARISON: Scrotum Testicles dated 06/20/2021 FINDINGS: The right testicle 4.3 x 2.7 x 2.6 cm. No intratesticular masses or evidence of testicular torsion. The left testicle 4.1 x 2.4 x 2.3 cm. No intratesticular masses or evidence of testicular torsion. 2.4 cm right-sided epididymal cyst or spermatocele. No pathologic fluid collections. Small left varicocele. IMPRESSION: No intratesticular mass or evidence of testicular torsion. 2.4 cm right-sided epididymal cyst versus spermatocele.
[2021-12-24 17:10] LABS: Urine Blood Negative (Negative); Urine Glucose Negative (Negative); Urine Protein Negative (Negative)
--- NOTE | 2021-12-24 17:17 | ER ---
Nurse's Notes [facility] [place], [place] [facility] Name: Joe Velasquez Age: 26 yrs Sex: Male : 1995 Arrival Date: 12/24/2021 Time: 14:27 Bed 9 Private MD: Diagnosis: Left testicular pain Presentation: 12/24 14:49 Chief complaint: Patient states: he has testicular pain that has increased in intensity ap3 over the last three days. Coronavirus screen: At this time, the client does not indicate any symptoms associated with coronavirus-19. Ebola Screen: No symptoms or risks identified at this time. Initial Sepsis Screen: Does the patient meet any 2 criteria? No. Patient's initial sepsis screen is negative. Does the patient have a suspected source of infection? No. Patient's initial sepsis screen is negative. Risk Assessment: Do you want to hurt yourself or someone else? Patient reports no desire to harm self or others. Onset of symptoms was December 21, 2021. 14:49 Method Of Arrival: Ambulatory ap3 14:49 Acuity: FABRIZIO 3 ap3 Triage Assessment: 14:52 General: Appears in no apparent distress. Behavior is calm. Pain: Complains of pain in ap3 left testicle Pain currently is 9 out of 10 on a pain scale. Neuro: Level of Consciousness is awake, alert, obeys commands, Oriented to person, place, time, situation, Appropriate for age. Cardiovascular: Patient's skin is warm and dry. Respiratory: Airway is patent Respiratory effort is even, unlabored, Respiratory pattern is regular, symmetrical. Historical: - Allergies: 14:51 No Known Allergies; ap3 - Home Meds: 14:51 acetaminophen 325 mg Oral tab [Active]; ap3 - PMHx: 14:51 testicular varicocle; testicular cyste; Anxiety; ap3 - Immunization history:: Client reports having NOT received the Covid vaccine. Flu vaccine is not up to date. Patient has never been vaccinated. - Social history:: Smoking status: Patient denies any tobacco usage or history of. Patient uses pt states he smoked CBD prior to arrival for pain relief. . Screenin:52 Abuse screen: Denies threats or abuse. Nutritional screening: No deficits noted. ap3 Tuberculosis screening: No symptoms or risk factors identified. 17:25 Fall Risk None identified. ld1 Vital Signs: 14:49 BP 121 / 84; Pulse 77; Resp 17; Temp 98.6; Pulse Ox 100% ; Weight 68.95 kg; Height 5 ap3 ft. 11 in. (180.34 cm); Pain 9/10; 14:49 Body Mass Index 21.20 (68.95 kg, 180.34 cm) ap3 ED Course: 14:27 Patient arrived in ED. am2 14:51 Triage completed. ap3 14:53 Arm band placed on right wrist. ap3 15:19 Jessica Covington [facility]-C [facility]. kb 15:19 David Hancock MD is Attending Physician. kb 15:28 Candis Patel, RN is Primary Nurse. ld1 15:56 US Scrotum Testicles In Process Unspecified. EDMS 17:24 No provider procedures requiring assistance completed. Patient did not have IV access ld1 during this emergency room visit. 17:25 Patient has correct armband on for positive identification. Bed in low position. Call ld1 light in reach. Side rails up X2. Pulse ox on. NIBP on. Door closed. Noise minimized. Warm blanket given. Administered Medications: No medications were administered Outcome: 17:16 Discharge ordered by MD. kb 17:24 Discharged to home ambulatory. ld1 17:24 Condition: stable 17:24 Discharge instructions given to patient, Instructed on discharge instructions, follow up and referral plans. Demonstrated understanding of instructions, follow-up care. 17:25 Patient left the ED. ld1 Signatures: Dispatcher [employer] Jessica Covington FNP-C FNP-Ckb Moreno, Amanda am2 Marybeth Vazquez RN RN ap3 Candis Patel, RN RN ld1
--- NOTE | 2021-12-24 17:17 | EDPHYS ---
Physician Documentation [facility] Name: Joe Velasquez Age: 26 yrs Sex: Male : 1995 Arrival Date: 12/24/2021 Time: 14:27 Bed 9 Private MD: ED Physician David Hancock HPI: 12/24 16:28 This 26 yrs old Male presents to ER via Ambulatory with complaints of Testicular Pain. kb 16:28 The patient presents with scrotal pain, of the left side, without swelling, without kb erythema. Onset: The symptoms/episode began/occurred 3 day(s) ago. Modifying factors: The symptoms are alleviated by nothing, the symptoms are aggravated by nothing. Associated signs and symptoms: The patient has no apparent associated signs or symptoms. Severity of symptoms: At their worst the symptoms were moderate, in the emergency department the symptoms are unchanged. The patient has experienced similar episodes in the past. The patient has not recently seen a physician. Pt reports he has left testicular pain on and off all of the time, but it has been worse over the last 3 days. Historical: - Allergies: 14:51 No Known Allergies; ap3 - Home Meds: 14:51 acetaminophen 325 mg Oral tab [Active]; ap3 - PMHx: 14:51 testicular varicocle; testicular cyste; Anxiety; ap3 - Immunization history:: Client reports having NOT received the Covid vaccine. Flu vaccine is not up to date. Patient has never been vaccinated. - Social history:: Smoking status: Patient denies any tobacco usage or history of. Patient uses pt states he smoked CBD prior to arrival for pain relief. . ROS: 16:27 Constitutional: Negative for fever, chills, and weight loss. kb 16:27 : Positive for testicular pain of the left testicle. 16:27 All other systems are negative. Exam: 16:27 Constitutional: This is a well developed, well nourished patient who is awake, alert, kb and in no acute distress. Head/Face: Normocephalic, atraumatic. ENT: Moist Mucous membranes Respiratory: Respirations even and unlabored. No increased work of breathing. Talking in full sentences Male : Normal genitalia with no discharge or lesions. Skin: Warm, dry with normal turgor. Normal color. MS/ Extremity: Pulses equal, no cyanosis. Neurovascular intact. Full, normal range of motion. Neuro: Awake and alert, GCS 15, oriented to person, place, time, and situation. Moves all extremities. Normal gait. Psych: Awake, alert, with orientation to person, place and time. Behavior, mood, and affect are within normal limits. Vital Signs: 14:49 BP 121 / 84; Pulse 77; Resp 17; Temp 98.6; Pulse Ox 100% ; Weight 68.95 kg; Height 5 ap3 ft. 11 in. (180.34 cm); Pain 9/10; 14:49 Body Mass Index 21.20 (68.95 kg, 180.34 cm) ap3 MDM: 15:19 Patient medically screened. kb 16:27 Data reviewed: vital signs, nurses notes. Data interpreted: Pulse oximetry: on room air kb is 100 %. Interpretation: normal. Counseling: I had a detailed discussion with the patient and/or guardian regarding: the historical points, exam findings, and any diagnostic results supporting the discharge/admit diagnosis, lab results, radiology results, the need for outpatient follow up, a urologist, to return to the emergency department if symptoms worsen or persist or if there are any questions or concerns that arise at home. 12/24 17:10 Order name: Urine Dipstick-Ancillary; Complete Time: 17:16 EDPA 12/24 15:05 Order name: US Scrotum Testicles; Complete Time: 16:13 kb 12/24 15:19 Order name: Urine Dipstick-Ancillary (obtain specimen); Complete Time: 17:12 kb Administered Medications: No medications were administered Disposition Summary: 12/24/21 17:16 Discharge Ordered Location: Home kb Condition: Stable kb Diagnosis - Left testicular pain kb Followup: kb - With: Emergency Department - When: As needed - Reason: Worsening of condition Followup: kb - With: Private Physician - When: 2 - 3 days - Reason: Recheck today's complaints, Continuance of care, Re-evaluation by your physician Discharge Instructions: - Discharge Summary Sheet kb - Testicular Self-Exam, [id number] kb Forms: - Medication Reconciliation Form kb - Thank You Letter kb - Antibiotic Education kb - Prescription Opioid Use kb Signatures: Dispatcher [employer] EDPA Jessica Covington, RICHELLE-C RICHELLE-Ckb Prokisch, Marybeth, RN RN ap3
[2021-12-24 18:06] VITALS: BP 121/84; TEMP 98.6; O2SAT 100
== END 2021-12-24 17:25 | disposition home or self-care (01) ==
LOC: ER 14:26
DX: N50.812 Left testicular pain (principal)
CPT/HCPCS: 76870; 81003; 99283

== ENCOUNTER 2022-04-21 03:57 | Emergency (ER) | payer OTHER ==
--- OUTSIDE RECORDS SUMMARY | 2022-04-21 04:00 | XMS REPORT | Continuity of Care Document ---
:1995 Author Organization [facility] t Address [address] [place] [address] [address]. [address] [place] [address] Care Team Providers Name Role Phone PCP, DOES NOT HAVE A Primary Care Physician Unavailable Aneta Attending Clinician Unavailable Humberto MARTIN Attending Clinician HUMBERTO Attending Clinician Unavailable Casey TORRES, G Attending Clinician Doctor Unassigned, Name Attending Clinician Unavailable Aneta Admitting Clinician Unavailable HUMBERTO Admitting Clinician Unavailable Payers Payer Name Policy Type Policy Number Effective Date Expiration Date S roscoe [employer] - [id number] 2021 [facility] 00:00:00 (MEDICARE REPLACEMENT/ADVANTA GE - HMO) [facility] [id number] 2021 [employer] [place] 00:00:00 (MEDICAID HMO) Problems Condition Condition Condition Status Onset Resolution Last Treating Co mments Source Name Details Category Date Date Treatment Clinician Date Anxiety Anxiety Problem Active [place] disorder Disorder 5-16 [facility] Schizophre Schizophre Problem Active [place] roshan roshan 6-23 da 00:00: [facility] [employer] [facility] Anger Anger Problem Active [place] management Management 3-25 da therapy Therapy 00:00: [facility] [employer] [facility] No known No known Disease Unive rs active active ity of problems problems [facility] Allergies, Adverse Reactions, Alerts Allergy Allergy Status Severity Reaction(s) Onset Inactive Treating Comm ents Source Name Type Date Date Clinician NO KNOWN Drug Active Univers ALLERGIE Class ity of S [facility] Social History Social Habit Start Date Stop Date Quantity Comments Source Sex Assigned At Uni versity [facility] Exposure to SARS-CoV-2 Not sure [facility] Smoking Status Start Date Stop Date Source Former Smoker [facility] Unknown if ever smoked [facility] Medications Ordered Filled Start Stop Current Ordering Indication Dosage Frequency Signature Comments Components Source Medication Medication Date Date Medication? Clinician (SIG) Name Name ibuprofen Yes [id number] 600mg Take 1 Univers 600 mg 04-18 [id number] tablet by ity of tablet 00:00: mouth [place] 00 every 8 Medical (eight) Branch hours as needed for Pain (scale 1-3). dexamethaso 2019- No 10mg 10 mg, Uni vers ne 01-1315 Intramuscu ity of (DECADRON 05:15: 04:49 lar, ONCE, [place] PHOSPHATE) 00 :00 1 dose, Medica l injection [place] Branch 10 mg 01/14/20 at 0015, Routine ibuprofen 2018- No 600mg 600 mg, Uni vers (IBU) 06-24 Oral, ity of tablet 600 03:00: 01:59 ONCE, 1 Parveen as mg 00 :00 dose, Fri Medical 06/23/19 at Branch 2200, ELIDA etodolac 2019- No [id number] 300mg Take 1 U nivers 300 mg 06-23 capsule by ity of capsule 00:00: 04:59 mouth 3 [place] 00 :00 (three) Medical times Branch daily with meals for 5 days. duloxetine duloxetine No 1capsul Q1D duloxetine [place] 30 mg 30 mg e(s) 30 mg da capsule,del capsule,del capsule,de [facility] ayed ayed layed al release release release Health Take 1 Take 1 Take 1 Outreac capsule capsule capsule h every day every day every day Program by oral by oral by oral route in route in route in the the the morning. morning. morning. penicillin penicillin No penicillin [place] V potassium V potassium V d a 500 mg 500 mg potassium [facility] p tablet TAKE tablet TAKE 500 mg al 1 TABLET BY 1 TABLET BY tablet Health MOUTH 4 MOUTH 4 TAKE 1 Outreac TIMES DAILY TIMES DAILY TABLET BY h MOUTH 4 Program TIMES DAILY No known No Univers medications [facility] No known No Univers medications [facility] Vital Signs Vital Name Observation Time Observation Value Comments Source Height 2022-03-16 00:00:00 71 [in_i] [place] [facility] BMI (Body Mass 2022-03-16 00:00:00 21.2 kg/m2 [facility] 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) [facility] Body Weight 2022-03-16 00:00:00 151.8 [lb_av] [place] [facility] BP Diastolic 2021-12-24 00:00:00 83 mm[Hg] [place] [facility] Height 2021-12-24 00:00:00 71 [in_i] [place] [facility] BMI (Body Mass 2021-12-24 00:00:00 21.2 kg/m2 [facility] 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) [facility] BP Systolic 2021-12-24 00:00:00 133 mm[Hg] [place] [facility] Body Weight 2021-12-24 00:00:00 2435 [oz_av] [place] [facility] Respiratory rate 2020-04-18 08:19:00 16 /min [facility] Body height 2020-04-18 08:19:00 180.3 cm [facility] Body weight 2020-04-18 08:19:00 68.04 kg [facility] BMI 2020-04-18 08:19:00 20.92 kg/m2 [facility] Oxygen saturation in 2020-04-18 08:19:00 100 /min University of Arterial blood by [facility] Pulse oximetry Branch Systolic blood 2020-04-18 08:19:00 141 mm[Hg] Univer sity of pressure [place] [facility] Diastolic blood 2020-04-18 08:19:00 92 mm[Hg] Unive rsity of pressure [place] [facility] Heart rate 2020-04-18 08:19:00 79 /min Universi ty [facility] [place] [facility] Body temperature 2020-04-18 08:19:00 36.56 Rocio Univ ersity of [place] [facility] Respiratory rate 2020-04-18 08:19:00 16 /min Univ ers[facility] [place] [facility] Body height 2020-04-18 08:19:00 180.3 cm [facility] [place] [facility] Body weight 2020-04-18 08:19:00 68.04 kg [facility] [place] [facility] BMI 2020-04-18 08:19:00 20.92 kg/m2 Universi ty of [facility] Oxygen saturation in 2020-04-18 08:19:00 100 /min University of Arterial blood by [facility] Pulse oximetry Branch Systolic blood 2020-04-18 08:19:00 141 mm[Hg] Univer sity of pressure [place] [facility] Diastolic blood 2020-04-18 08:19:00 92 mm[Hg] Unive rsity of pressure [place] [facility] Heart rate 2020-04-18 08:19:00 79 /min Universi ty [facility] [place] [facility] Body temperature 2020-04-18 08:19:00 36.56 Rocio Univ ersity [facility] [place] [facility] Systolic blood 2020-01-14 03:29:00 136 mm[Hg] Univer sity of pressure [place] [facility] Diastolic blood 2020-01-14 03:29:00 82 mm[Hg] Unive rsity of pressure [place] [facility] Heart rate 2020-01-14 03:29:00 86 /min Universi ty [facility] [place] [facility] Body temperature 2020-01-14 03:29:00 36.5 Rocio Univ ersity [facility] [place] [facility] Respiratory rate 2020-01-14 03:29:00 20 /min Univ ersity [facility] [place] [facility] Body height 2020-01-14 03:29:00 180.3 cm [facility] [place] [facility] Body weight 2020-01-14 03:29:00 68.04 kg [facility] [place] [facility] BMI 2020-01-14 03:29:00 20.92 kg/m2 [facility] [place] [facility] Oxygen saturation in 2020-01-14 03:29:00 100 /min University of Arterial blood by [facility] avinash Pulse oximetry Branch Systolic blood 2020-01-14 03:29:00 136 mm[Hg] Univer sity of pressure [place] [facility] Diastolic blood 2020-01-14 03:29:00 82 mm[Hg] Unive rsity of pressure [place] [facility] Heart rate 2020-01-14 03:29:00 86 /min Universi ty [facility] [place] [facility] Body temperature 2020-01-14 03:29:00 36.5 Rocio Univ ersity [facility] [place] [facility] Respiratory rate 2020-01-14 03:29:00 20 /min Univ ersity [facility] [place] [facility] Body height 2020-01-14 03:29:00 180.3 cm [facility]i [facility] [place] [facility] Body weight 2020-01-14 03:29:00 68.04 kg [facility] [place] [facility] BMI 2020-01-14 03:29:00 20.92 kg/m2 [facility] ty [facility] [place] [facility] Oxygen saturation in 2020-01-14 03:29:00 100 /min University of Arterial blood by [facility] Pulse oximetry Branch Systolic blood 2019-06-24 02:00:00 114 mm[Hg] Univer sity of pressure [place] [facility] Diastolic blood 2019-06-24 02:00:00 67 mm[Hg] Unive rsity of pressure [place] [facility] Heart rate 2019-06-24 02:00:00 79 /min Universi ty of [place] [facility] Respiratory rate 2019-06-24 02:00:00 18 /min Univ ersity [facility] [place] [facility] Oxygen saturation in 2019-06-24 02:00:00 98 /min University of Arterial blood by [facility] avinash Pulse oximetry Branch Body temperature 2019-06-23 23:19:00 36.94 Rocio Univ ersity [facility] [place] [facility] Body height 2019-06-23 23:19:00 180.3 cm [facility]i ty [facility] [place] [facility] Body weight 2019-06-23 23:19:00 62.143 kg [facility]i ty [facility] [place] [facility] BMI 2019-06-23 23:19:00 19.11 kg/m2 Universi ty [facility] [place] [facility] Systolic blood 2019-06-24 02:00:00 114 mm[Hg] Dante sity of pressure [facility] Diastolic blood 2019-06-24 02:00:00 67 mm[Hg] Unive rsity of pressure [facility] Heart rate 2019-06-24 02:00:00 79 /min [facility] Respiratory rate 2019-06-24 02:00:00 18 /min [facility] Oxygen saturation in 2019-06-24 02:00:00 98 /min [facility] Arterial blood by [facility] Pulse oximetry Branch Body temperature 2019-06-23 23:19:00 36.94 Rocio [facility] Body height 2019-06-23 23:19:00 180.3 cm [facility] Body weight 2019-06-23 23:19:00 62.143 kg [facility] BMI 2019-06-23 23:19:00 19.11 kg/m2 [facility] Procedures Procedure Date / Time Performed Performing Clinician Sour e XR SPINE THORACIC 2 VW 2020-04-18 08:52:23 Rosa Paul [facility] rsity of [facility] XR CERVICAL SPINE 3 VW 2020-04-18 08:52:23 Rosa Paul [facility] XR ANKLE 3+ VW LEFT 2020-04-18 08:52:23 Rosa Paul [facility] ty of [facility] XR SHOULDER 2+ VW LEFT 2020-04-18 08:52:23 Rosa Paul [facility] NOTICE OF PRIVACY 2020-04-18 08:16:33 Doctor Unassigned, No Univ ersity of [facility] Name Medical Branch CONSENT/REFUSAL FOR 2020-04-18 08:14:51 Doctor Unassigned, No Un [facility] of [place] DIAGNOSIS AND Name Medical Branch TREATMENT RAPID STREP SCREEN FOR 2020-01-14 04:49:00 Stella Peña [facility] A Medical [place] NOTICE OF PRIVACY 2020-01-14 03:19:09 Doctor Unassigned, No Univ ersity of [facility] Name Medical Branch CONSENT/REFUSAL FOR 2020-01-14 03:18:44 Doctor Unassigned, No Un [facility] [place] DIAGNOSIS AND Name Medical Branch TREATMENT URINALYSIS 2019-06-24 01:36:00 Stella Peña [facility] US TESTICULAR TORSION 2019-06-24 00:41:54 Alexa [facility] Plan of Care Planned Activity Planned Date Details Comments Source Instructions [facility] Encounters Start End Encounter Admission Attending Care Care Encounter Source Date/Time Date/Time Type Type Clinicians Facility Department ID 2022-03-16 2022-03-16 Outpatient Benson_Blachrista [facility] 113 97 [place] 02:55:00 02:55:00 e [id number] [facility] 2022-03-16 2022[facility]03-[facility] [place] [facility] [id number] [place] 00:00:00 00:00:00 Alexandria De La Cruz MD: Rastafarian Epi scop [facility] [phone] [facility] , Ph. [phone] 2022-02-02 Outpatient Benson_Blak [facility] 113 97 [place] 02:26:00 02:26:00 e [id number] [facility] 2022-01-14 2022-01-14 Outpatient Benson_Blak [facility] 113 [place] 11:12:00 11:12:00 e [id number] [facility] 2021-12-26 2021-12-26 Outpatient Benson_Blak [facility] 113 97 [place] 02:36:00 02:36:00 e da [facility] 2021-12-25 2021-12-25 Outpatient Benson_Blak [facility] 113 97 [place] 04:57:00 04:57:00 e [facility] 2021-12-24 2021-12-24 Outpatient Benson_Blak [facility] 113 97 [place] 02:45:00 02:45:00 e [facility] 2021-12-24 2021-12-24 L[place] [facility] [place] - [id number] M [place] 00:00:00 00:00:00 NICOLA Hand: Siobhan meng [id number] [place] [facility]ast[facility]arian [facility] op [facility] Program [phone] , Ph. 2021-12-22 2021-12-22 Outpatient Benson_Blak [facility] 113 970- [place] 05:11:00 05:11:00 e da [facility] 2021-05-15 2021-05-15 Outpatient Benson_Blak [facility] 113 970 [place] 02:35:00 02:35:00 e [id number] [facility] 2021-05-14 2021-05-14 Outpatient Benson_Blak [facility] 113 970- [place] 05:09:00 05:09:00 e [id number] [facility] 2021-05-14 2021-05-14 Gu[place] [facility] [place] - [id number] [place] 00:00:00 00:00:00 Siobhan Cuello da MANAGER COMPLETIONS: [id number] [facility]arian Epi scop [place] 59 [facility] [place] [facility] [address] , Ph. 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 [phone] h , Ph. Program (120) 2021-04-30 2021-04-30 Outpatient Benson_Blak [facility] 113 970- [place] 04:15:00 04:15:00 e [id number] da [facility] 2021-04-30 2021-04-30 [place] - [id number] [place] 00:00:00 00:00:00 Siobhan Cuello da MANAGER COMPLETIONS: [id number] [facility]arian Epi scop [place] 59 [facility] [place] Program [phone] , Ph. 2021-04-23 2021-04-23 Outpatient Sean WYJOSESITO [facility] 113 97 [place] 04:52:00 04:52:00 e [id number] da [facility] 2021-04-23 2021-04-23 Guanakitoaleksandar [place] - [id number] [place] 00:00:00 00:00:00 Siobhan Cuello da MANAGER COMPLETIONS: [id number] [facility]afarian Epi scop [place] 59 [facility] [place] Program [phone] , Ph. 2021-04-16 2021-04-16 Outpatient Sean WYJOSESITO [facility] 113 97 [place] 05:43:00 05:43:00 e [id number] da [facility] Program 2021-04-16 2021-04-16 Guanakitoaleksandar [place] - [id number] [place] 00:00:00 00:00:00 Siobhan Cuello da MANAGER COMPLETIONS: [id number] [facility]arian Epi scop [place] 59 [facility] [place] Program [address] , Ph. 2021-04-09 2021-04-09 Outpatient Sean SHANE [facility] 113 97 [place] 02:57:00 02:57:00 e [id number] da [facility] 2021-04-09 2021-04-09 Guanakitoaleksandar [place] - [id number] [place] 00:00:00 00:00:00 Cuate Siobhan da MANAGER COMPLETIONS: [id number] [facility]arian Epi scop [place] [address] [facility] [address] [facility] [place] Program [address] , Ph. 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 [phone] h , Ph. Program (970) 2021-03-26 2021-03-26 Outpatient Cuate_Sam [facility] 113 97 [place] 04:06:00 04:06:00 e [id number] [facility] 2021-03-26 2021-03-26 [place] - [id number] [place] 00:00:00 00:00:00 Cuello, Siobhan da MANAGER COMPLETIONS: 94822 Rastafarian Epi scop [place] [address] [facility] [address] [facility] [place] Program [address] , Ph. 2021-03-12 2021-03-12 Outpatient Teson_Sam [facility] 113 97 [place] 03:55:00 03:55:00 e [id number] da [facility] 2021-03-12 2021-03-12 [place] - [id number] [place] 00:00:00 00:00:00 Kristian Cuellorda da MANAGER COMPLETIONS: [id number] [facility]arian Epi scop [place] [address] [facility] [address] [facility] [place] Program [address] , Ph. 2021 2021 Outpatient Benson_Sam SH[place] [facility] 113 970- [place] 01:02:00 01:02:00 e [id number] [facility] 2021-02-26 2021-02-26 Outpatient Benson_Sam [place] [facility] 113 970- [place] 04:02:00 04:02:00 e [id number] [facility] 2021-02-26 2021-02-26 Guanakitoaleksandar [place] - [id number] [place] 00:00:00 00:00:00 Siobhan Cuello da MANAGER COMPLETIONS: 03619 Rastafarian Epi scop [place] 59 [facility] [place] Program [address] , Ph. 2021-01-30 2021-01-30 Outpatient Teson_Sam SHANE [facility] 113 97 [place] 01:02:00 01:02:00 e [id number] [facility] 2021-01-29 2021-01-29 Outpatient Sean WYJOSESITO [facility] 113 970 [place] 04:36:00 04:36:00 e [id number] [facility] 2021-01-29 2021-01-29 [place] MEJOSESITO [place] - [id number] [place] 00:00:00 00:00:00 Siobhan Cuello da MANAGER COMPLETIONS: 46442 Rastafarian Epi scop [place] 59 [facility] [place] Program [address] , Ph. 2021-01-23 2021-01-23 Outpatient Benson_Sam SH[place] [facility] 113 97 [place] 02:28:00 02:28:00 e [id number] da [facility] 2021-01-23 2021-01-23 [place] MEJOSESITO [place] - [id number] M [place] 00:00:00 00:00:00 Siobhan Cuello da MANAGER COMPLETIONS: 07860 Rastafarian Epi scop [place] 59 HOP - [facility] [address] [place] Program [address] , Ph. 2021-01-20 2021-01-20 Outpatient Sean WYJOSESITO [facility] 113 [place] 02:30:00 02:30:00 e [id number] [facility] 2021-01-17 2021-01-17 Outpatient Sean [facility] 113 [place] 03:53:00 03:53:00 e [id number] da [facility] 2020-04-18 2020-04-18 Emergency [facility] [id number] 03:14:19 04:37:00 Rosa [place] [id number] [place] 4.2.7.2.686 [place] [id number] [employer] 2020-04-18 2020-04-18 Emergency [facility] [id number] [facility] 03:14:19 04:37:00 Rosa Beck [id number] i ty of [place] 4.2.[address] [place] [id number] 2020-04-18 2020-04-18 Emergency X [facility] ERT [id number] [facility] 03:14:19 04:37:00 ROSA itsayda [facility] 2020-01-13 2020-01-14 Emergency [facility] [id number] 22:34:02 00:22:00 Stella Beck [id number] [place] 4.2.7.2.6 [place] [id number] [employer] 2020-01-13 2020-01-14 Emergency [facility] [id number] Univers 22:34:02 00:22:00 Stella Jordan [place] [id number] ity of [place] 4.2.7.2.686 [facility] [id number] [address] 2020-01-13 2020-01-13 Emergency X [facility] ERT [id number] Univers 22:21:00 22:21:00 ity of [facility] 2020-01-13 2020-01-13 Orders Doctor MARIANELA [id number] Univers 00:00:00 00:00:00 Only Unassigned, ROSALINO [id number] ity of [place] [facility] 4.2.7.2.686 [facility] [id number] [facility] [address] [place] 2020-01-13 2020-01-13 Orders Doctor MARIANELA [id number] 00:00:00 00:00:00 Only Unassigned, ROSALINO [id number] [place] [facility] 4.2.7.2.686 [id number] [facility] 2019-06-23 2019-06-23 Emergency [facility] [id number] [facility] 19:50:03 21:26:00 Stella [place] [id number] 4.2.7.2.686 [facility] [id number] [address] 2019-06-23 2019-06-23 Emergency [facility] [id number] 19:50:03 21:26:00 Stella Beck [id number] [place] 4.2.7.2.686 [place] [id number] Results Test Description Test Time Test Comments Results Result Comments Source RAPID STREP SCREEN FOR GROUP A 2020-01-14 05:10:00 Test Item Value Reference Range Interpretation Comme nts Streptococcus pyogenes (group A) antigen (test code = 06901- 2) Negative Negative Lab Interpretation (test code = 14331-2) [facility]54[facility]00 Test Item Value Reference Range Interpretation Comments APPEARANCE (test code = Clear Clear [id number]) COLOR (test code = Yellow Yellow [id number]) PH (test code = 4.8-8.0 6256170310) SP GRAVITY (test code = 1.003-1.030 2627485491) GLU U QUAL (test code = Negative Negative 5730049429) BLOOD (test code = Negative Negative 1127593425) KETONES (test code = Negative Negative 7522443662) PROTEIN (test code = Negative Negative 2887-8) UROBILIN (test code = 0.2 mg/dL See_Comment [Auto mated message] [id number]) The system [employer] generated this result transmit adolfo reference range : 0-1.0 mg/dL. Th e reference range was not used to interpret this result as normal/abnormal . BILIRUBIN (test code = Negative Negative 7249798927) NITRITE (test code = Negative Negative 9751949164) LEUK YAYA (test code = Negative Negative 7795204916) RBC/HPF (test code = See_Comment [Autom ated message] [id number]) The system [employer] generated this result transmit adolfo reference range : 0 - 3 HPF. The refe rence range was not u sed to interpret th is result as normal/abnormal . WBC/HPF (test code = See_Comment [Autom ated message] [id number]) The system [employer] generated this result transmit adolfo reference range : 0 - 5 HPF. The refe rence range was not u sed to interpret th is result as normal/abnormal . BACTERIA (test code = Negative Negative 3527801201) Lab Interpretation (test Normal code = 06897-4) [facility] TESTICULAR [id number] 01:52:48 Symmetrical arterial and venous flows within both testicles. Large right epididymal cyst measuring 2.2 cm with internal debris.Spermatocele is also a consideration. Mateo Nguyen MD., have reviewed this study and agree [...] reviewed this study and agree with the abovereport.[facility]
[2022-04-21 05:19] LABS: Absolute Lymphocytes (CBC) 2.3 K/uL (0.7-4.9); Hematocrit 43.1 % (39.6-49.0); Lymphocytes % 20.6 % (15.3-44.8); MPV 8.8 fL (7.6-11.3); RBC Red Blood Cell Count 4.91 M/uL (4.33-5.43)
[2022-04-21] MEDS ORDERED: NA CHLORIDE 0.9% 1,000 ML ONE (05:30)
[2022-04-21] MEDS ORDERED: ONDANSETRON 4 MG/2 ML VIAL ONE (05:30)
[2022-04-21 05:39] LABS: Albumin 4.3 g/dL (3.4-5.0); Bilirubin Total 1.4 mg/dL (0.2-1.0); Potassium 4.1 mmol/L (3.5-5.1); Protein, Total 7.9 g/dL (6.4-8.2)
--- NOTE | 2022-04-21 08:07 | EDPHYS ---
Physician Documentation [facility] Name: Joe Velasquez Age: 27 yrs Sex: Male : 1995 Arrival Date: 04/21/2022 Time: 03:59 Bed 18 Private MD: ED Physician Ramses Napier HPI: 04/21 06:28 This 27 yrs old Male presents to ER via Ambulatory with complaints of Nausea/Vomiting, kdr Lightheaded, Shaky. 06:28 The patient presents to the emergency department with nausea, that is mild, that is kdr moderate. Onset: The symptoms/episode began/occurred gradually. Possible causes: Patient states that he stopped taking his Cymbalta on Wednesday. Since then he has been feeling poorly. He has had some nausea but no vomiting. General he just feels under the weather. The symptoms are aggravated by. 06:31 Associated signs and symptoms: Pertinent positives: nausea, vomiting. Severity of kdr symptoms: At their worst the symptoms were moderate severe just prior to arrival, in the emergency department the symptoms are unchanged. The patient has not experienced similar symptoms in the past. The patient has not recently seen a physician. Patient stated that he stopped taking his Cymbalta due to the fact he felt that it was driving his blood pressure too low. Having abruptly stopped the medication however he was also feeling poorly. Historical: - Allergies: 04:18 No Known Allergies; lg3 - Home Meds: 04:18 None [Active]; lg3 - PMHx: 04:18 Anxiety; testicular cyste; testicular varicocle; lg3 - PSHx: 04:18 None; lg3 - Immunization history:: Adult Immunizations up to date, Client reports having NOT received the Covid vaccine. - Social history:: Smoking status: Patient reports the use of cigarette tobacco products, smokes one-half pack cigarettes per day, Patient/guardian denies using alcohol, street drugs. ROS: 06:31 Constitutional: Negative for fever, chills, and weight loss, Eyes: Negative for injury, kdr pain, redness, and discharge, Neck: Negative for injury, pain, and swelling, Cardiovascular: Negative for chest pain, palpitations, and edema, Respiratory: Negative for shortness of breath, cough, wheezing, and pleuritic chest pain, Abdomen/GI: Negative for abdominal pain, nausea, vomiting, diarrhea, and constipation, Back: Negative for injury and pain, MS/Extremity: Negative for injury and deformity, Skin: Negative for injury, rash, and discoloration, Psych: Negative for depression, anxiety, suicide ideation, homicidal ideation, and hallucinations, Allergy/Immunology: Negative for hives, rash, and allergies, Endocrine: Negative for neck swelling, polydipsia, polyuria, polyphagia, and marked weight changes, Hematologic/Lymphatic: Negative for swollen nodes, abnormal bleeding, and unusual bruising. 06:31 Neuro: Positive for weakness. Exam: 06:31 Constitutional: This is a well developed, well nourished patient who is awake, alert, kdr and in no acute distress. Does appear mildly uncomfortable but otherwise does not require immediate or emergent intervention Head/Face: Normocephalic, atraumatic. Eyes: Pupils equal round and reactive to light, extra-ocular motions intact. Lids and lashes normal. Conjunctiva and sclera are non-icteric and not injected. Cornea within normal limits. Periorbital areas with no swelling, redness, or edema. Neck: Trachea midline, no thyromegaly or masses palpated, and no cervical lymphadenopathy. Supple, full range of motion without nuchal rigidity, or vertebral point tenderness. No Meningismus. Chest/axilla: Normal chest wall appearance and motion. Nontender with no deformity. No lesions are appreciated. Cardiovascular: Regular rate and rhythm with a normal S1 and S2. No gallops, murmurs, or rubs. Normal PMI, no JVD. No pulse deficits. Respiratory: Lungs have equal breath sounds bilaterally, clear to auscultation and percussion. No rales, rhonchi or wheezes noted. No increased work of breathing, no retractions or nasal flaring. Abdomen/GI: Soft, non-tender, with normal bowel sounds. No distension or tympany. No guarding or rebound. No evidence of tenderness throughout. Back: No spinal tenderness. No costovertebral tenderness. Full range of motion. Skin: Warm, dry with normal turgor. Normal color with no rashes, no lesions, and no evidence of cellulitis. MS/ Extremity: Pulses equal, no cyanosis. Neurovascular intact. Full, normal range of motion. Neuro: Awake and alert, GCS 15, oriented to person, place, time, and situation. Cranial nerves II-XII grossly intact. Motor strength 5/5 in all extremities. Sensory grossly intact. Cerebellar exam normal. Normal gait. Psych: Awake, alert, with orientation to person, place and time. Behavior, mood, and affect are within normal limits. Vital Signs: 04:14 BP 136 / 73; Pulse 84; Resp 17 S; Temp 98.5(O); Pulse Ox 100% on R/A; Weight 68.04 kg lg3 (R); Height 6 ft. 0 in. (182.88 cm) (R); Pain 0/10; 05:29 BP 114 / 70; Pulse 86; Resp 18 S; Pulse Ox 98% on R/A; lg3 06:47 BP 111 / 63; Pulse 88; Resp 17; Pulse Ox 100% on R/A; lg3 04:14 Body Mass Index 20.34 (68.04 kg, 182.88 cm) lg3 MDM: 06:31 Data reviewed: vital signs, nurses notes, lab test result(s). Counseling: I had a kdr detailed discussion with the patient and/or guardian regarding: the historical points, exam findings, and any diagnostic results supporting the discharge/admit diagnosis, lab results. 08:06 Patient medically screened. kdr 04/21 04:49 Order name: CBC with Diff; Complete Time: 06:36 bb 04/21 04:49 Order name: CMP; Complete Time: 06:36 bb 04/21 04:49 Order name: Lipase; Complete Time: 06:36 bb 04/21 04:49 Order name: IV Saline Lock; Complete Time: 05:09 bb 04/21 04:49 Order name: Labs collected and sent; Complete Time: 05:09 bb Administered Medications: 05:28 Drug: NS 0.9% 1000 ml Route: IV; Rate: 1 bolus; Site: right antecubital; lg3 05:28 Drug: Zofran (Ondansetron) 4 mg Route: IVP; Site: right antecubital; lg3 05:29 Follow up: Response: No adverse reaction lg3 Disposition Summary: 04/21/22 08:06 Discharge Ordered Location: Home kdr Problem: new kdr Symptoms: have improved kdr Condition: Stable kdr Diagnosis - Other psychoactive substance dependence with withdrawal, unspecified kdr - Weakness kdr Followup: kdr - With: Private Physician - When: 2 - 3 days - Reason: If symptoms return, Further diagnostic work-up, Recheck today's complaints, Continuance of care, Re-evaluation by your physician Discharge Instructions: - Discharge Summary Sheet kdr - Weakness, [id number]-sg-Slym kdr - Generalized Anxiety Disorder, Adult kdr Forms: - Medication Reconciliation Form kdr - Thank You Letter kdr Signatures: Dispatcher [employer] Ramses Ma MD MD kdr Ballard, Brenda RN RN bb Mela Silver RN RN lg3 Corrections: (The following items were deleted from the chart) 04:19 04:18 Home Meds: acetaminophen 325 mg Oral tab; lg3 lg3
--- NOTE | 2022-04-21 08:07 | ER ---
Nurse's Notes [facility] Name: Joe Velasquez Age: 27 yrs Sex: Male : 1995 Arrival Date: 04/21/2022 Time: 03:59 Bed 18 Private MD: Diagnosis: Other psychoactive substance dependence with withdrawal, unspecified;Weakness Presentation: 04/21 04:14 Chief complaint: Patient states: I quit taking my Cymbalta on Wednesday because it was lg3 making my blood pressure go too low. I have not notified my doctor yet because it was the weekend. on Wednesday I started feeling shaky, lightheaded, short of breath and began vomiting. this lasted for a few hours and stopped. Wednesday I started feeling the same way and went into a panic attack. now the feeling is back and I just feel really weak, shaky and dehydrated. Coronavirus screen: Client denies travel out of the [place] in the last 14 days. At this time, the client does not indicate any symptoms associated with coronavirus-19. Ebola Screen: No symptoms or risks identified at this time. Initial Sepsis Screen: Does the patient meet any 2 criteria? No. Patient's initial sepsis screen is negative. Does the patient have a suspected source of infection? No. Patient's initial sepsis screen is negative. Risk Assessment: Do you want to hurt yourself or someone else? Patient reports no desire to harm self or others. Onset of symptoms was April 19, 2022. 04:14 Method Of Arrival: Ambulatory lg3 04:14 Acuity: FABRIZIO 4 lg3 Triage Assessment: 04:18 General: Appears in no apparent distress. comfortable, Behavior is calm, cooperative, lg3 anxious. Pain: Denies pain. EENT: No deficits noted. No signs and/or symptoms were reported regarding the EENT system. Neuro: No deficits noted. John Agitation-Sedation Scale (RASS): 0 - Alert and Calm Level of Consciousness is awake, alert, obeys commands, Oriented to person, place, time, situation. Cardiovascular: No deficits noted. Capillary refill < 3 seconds Clubbing of nail beds is absent JVD is absent Patient's skin is warm and dry. Respiratory: No deficits noted. Airway is patent Trachea midline Respiratory effort is even, unlabored, Respiratory pattern is regular, symmetrical. GI: Abdomen is flat, non-distended, Bowel sounds present X 4 quads. Abd is soft and non tender X 4 quads. Reports nausea. : No deficits noted. No signs and/or symptoms were reported regarding the genitourinary system. Derm: No deficits noted. No signs and/or symptoms reported regarding the dermatologic system. Skin is intact, is healthy with good turgor, Skin is dry, Skin temperature is warm. Musculoskeletal: No deficits noted. No signs and/or symptoms reported regarding the musculoskeletal system. Circulation, motion, and sensation intact. Range of motion: intact in all extremities. Historical: - Allergies: 04:18 No Known Allergies; lg3 - Home Meds: 04:18 None [Active]; lg3 - PMHx: 04:18 Anxiety; testicular cyste; testicular varicocle; lg3 - PSHx: 04:18 None; lg3 - Immunization history:: Adult Immunizations up to date, Client reports having NOT received the Covid vaccine. - Social history:: Smoking status: Patient reports the use of cigarette tobacco products, smokes one-half pack cigarettes per day, Patient/guardian denies using alcohol, street drugs. Screenin:20 Abuse screen: Denies threats or abuse. Denies injuries from another. Nutritional lg3 screening: No deficits noted. Tuberculosis screening: No symptoms or risk factors identified. Fall Risk None identified. Assessment: 05:22 General: see triage assessment . lg3 05:29 Reassessment: Patient appears in no apparent distress at this time. No changes from lg3 previously documented assessment. Patient and/or family updated on plan of care and expected duration. Pain level reassessed. Patient is alert, oriented x 3, equal unlabored respirations, skin warm/dry/pink. 06:47 Reassessment: Patient appears in no apparent distress at this time. No changes from lg3 previously documented assessment. Patient and/or family updated on plan of care and expected duration. Pain level reassessed. Patient is alert, oriented x 3, equal unlabored respirations, skin warm/dry/pink. Vital Signs: 04:14 BP 136 / 73; Pulse 84; Resp 17 S; Temp 98.5(O); Pulse Ox 100% on R/A; Weight 68.04 kg lg3 (R); Height 6 ft. 0 in. (182.88 cm) (R); Pain 0/10; 05:29 BP 114 / 70; Pulse 86; Resp 18 S; Pulse Ox 98% on R/A; lg3 06:47 BP 111 / 63; Pulse 88; Resp 17; Pulse Ox 100% on R/A; lg3 04:14 Body Mass Index 20.34 (68.04 kg, 182.88 cm) lg3 ED Course: 03:59 Patient arrived in ED. bp1 04:01 Ramses Napier MD is Attending Physician. kdr 04:02 Mela Silver, RN is Primary Nurse. lg3 04:18 Triage completed. lg3 04:18 Arm band placed on right wrist. lg3 04:20 Patient has correct armband on for positive identification. Bed in low position. Call lg3 light in reach. Side rails up X 1. Client placed on continuous cardiac and pulse oximetry monitoring. NIBP monitoring applied. Door closed. Noise minimized. Warm blanket given. Family accompanied patient. 05:08 Inserted saline lock: 20 gauge in right antecubital area, using aseptic technique. oe Blood collected. 05:22 CMP Sent. lg3 05:22 Lipase Sent. lg3 06:56 IV discontinued, intact, bleeding controlled, No redness/swelling at site. Pressure lg3 dressing applied. 08:10 No provider procedures requiring assistance completed. hernandez Administered Medications: 05:28 Drug: NS 0.9% 1000 ml Route: IV; Rate: 1 bolus; Site: right antecubital; lg3 05:28 Drug: Zofran (Ondansetron) 4 mg Route: IVP; Site: right antecubital; lg3 05:29 Follow up: Response: No adverse reaction lg3 Medication: 04:21 VIS not applicable for this client. lg3 Outcome: 08:06 Discharge ordered by . kdr 08:10 Discharged to home ambulatory. hernandez 08:10 Condition: good 08:10 Discharge instructions given to patient. 08:26 Patient left the ED. hernandez Signatures: Ramses Napier MD MD kdr Luis Leonard oe Mela Silver, RN RN lg3 Vy Oliver bp1 Yuni-StagerRacheal RN RN hernandez Corrections: (The following items were deleted from the chart) 04:19 04:18 Home Meds: acetaminophen 325 mg Oral tab; lg3 lg3
[2022-04-21 08:48] VITALS: TEMP 98.5
[2022-04-21 08:52] VITALS: BP 111/63; O2SAT 100
== END 2022-04-21 08:26 | disposition home or self-care (01) ==
LOC: ER 03:57
DX: F19.239 Other psychoactive substance dependence with withdrawal, unspecified (principal); R53.1 Weakness; F17.210 Nicotine dependence, cigarettes, uncomplicated
CPT/HCPCS: 85025; 36415; 83690; 80053; J7030; J2405; 96374; 99283

== ENCOUNTER 2022-04-23 20:05 | Emergency (ER) | payer OTHER ==
--- OUTSIDE RECORDS SUMMARY | 2022-04-23 20:10 | XMS REPORT | Continuity of Care Document ---
:1995 Author Organization [facility] t Address 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, G Attending Clinician Doctor Unassigned, Name Attending Clinician Unavailable Aneta Admitting Clinician Unavailable HUMBERTO Admitting Clinician Unavailable Payers Payer Name Policy Type Policy Number Effective Date Expiration Date S roscoe [employer] - [id number] 2021 [facility] 00:00:00 (MEDICARE REPLACEMENT/ADVANTA GE - HMO) [facility] [id number] 2021 [employer] [place] 00:00:00 (MEDICAID HMO) Problems Condition Condition Condition Status Onset Resolution Last Treating Co mments Source Name Details Category Date Date Treatment Clinician Date Anxiety Anxiety Problem Active [place] disorder Disorder 5-16 [facility] Schizophre Schizophre Problem Active [place] roshan roshan 6-23 da [facility] Anger Anger Problem Active [place] management Management 3-25 da therapy Therapy 00:00: [facility] No known No known Disease Unive rs active active ity of problems problems [facility] Allergies, Adverse Reactions, Alerts Allergy Allergy Status Severity Reaction(s) Onset Inactive Treating Comm ents Source Name Type Date Date Clinician NO KNOWN Drug Active Univers ALLERGIE Class ity of S [facility] Social History Social Habit Start Date Stop Date Quantity Comments Source Sex Assigned At Uni versity [facility] Exposure to SARS-CoV-2 Not sure Un iversity [facility] (event) [facility] Smoking Status Start Date Stop Date Source Former Smoker [facility] Unknown if ever smoked [facility] Medications Ordered Filled Start Stop Current Ordering Indication Dosage Frequency Signature Comments Components Source Medication Medication Date Date Medication? Clinician (SIG) Name Name ibuprofen Yes [id number] 600mg Take 1 Univers 600 mg 04-18 [id number] tablet by ity of tablet 00:00: mouth [place] 00 every 8 Medical (eight) Branch hours as needed for Pain (scale 1-3). dexamethaso 2019- No 10mg 10 mg, Uni vers ne 01-1315 Intramuscu ity of (DECADRON 05:15: 04:49 lar, ONCE, [place] PHOSPHATE) 00 :00 1 dose, Medica l injection [facility] 10 mg 01/14/20 at 0015, Routine ibuprofen 2018- No 600mg 600 mg, Uni vers (IBU) 06-24 Oral, ity of tablet 600 03:00: 01:59 ONCE, 1 Parveen as mg 00 :00 dose, Fri Medical 06/23/19 at Branch 2200, ELIDA etodolac 2018- No [id number] 300mg Take 1 U nivers 300 mg [...] TIMES DAILY No known No Univers medications [facility] No known No Univers medications [facility] Vital Signs Vital Name Observation Time Observation Value Comments Source Height 2022-03-16 00:00:00 71 [in_i] [place] [facility] BMI (Body Mass 2022-03-16 00:00:00 21.2 kg/m2 [facility] 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 Index) [facility] Body Weight 2022-03-16 00:00:00 151.8 [lb_av] [place] [facility] BP Diastolic 2021-12-24 00:00:00 83 mm[Hg] [place] [facility] Height 2021-12-24 00:00:00 71 [in_i] [place] [facility] BMI (Body Mass 2021-12-24 00:00:00 21.2 kg/m2 [facility] 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 Index) [facility] BP Systolic 2021-12-24 00:00:00 133 mm[Hg] [place] [facility] Body Weight 2021-12-24 00:00:00 2435 [oz_av] [place] [facility] Systolic blood 2020-04-18 08:19:00 141 mm[Hg] Dante moshery [facility] Diastolic blood 2020-04-18 08:19:00 92 mm[Hg] Juanjo [facility] Heart rate 2020-04-18 08:19:00 79 /min [facility] Body temperature 2020-04-18 08:19:00 36.56 Rocio [facility] Respiratory rate 2020-04-18 08:19:00 16 /min [facility] [place] [facility] Body height 2020-04-18 08:19:00 180.3 cm [facility] [place] [facility] Body weight 2020-04-18 08:19:00 68.04 kg [facility] [place] [facility] BMI 2020-04-18 08:19:00 20.92 kg/m2 [facility] [place] [facility] Oxygen saturation in 2020-04-18 08:19:00 100 /min University of Arterial blood by [facility] Pulse oximetry Branch Systolic blood 2020-04-18 08:19:00 141 mm[Hg] Univer [facility]ity [facility] [place] [facility] Diastolic blood 2020-04-18 08:19:00 92 mm[Hg] Unive [facility]ity [facility] Heart rate 2020-04-18 08:19:00 79 /min [facility] [place] [facility] Body temperature 2020-04-18 08:19:00 36.56 Rocio [facility] [place] [facility] Respiratory rate 2020-04-18 08:19:00 16 /min [facility] [place] [facility] Body height 2020-04-18 08:19:00 180.3 cm [facility] [place] [facility] Body weight 2020-04-18 08:19:00 68.04 kg [facility] [place] [facility] BMI 2020-04-18 08:19:00 20.92 kg/m2 [facility] [place] [facility] Oxygen saturation in 2020-04-18 08:19:00 100 /min University of Arterial blood by [facility] Pulse oximetry Branch Systolic blood 2020-01-14 03:29:00 136 mm[Hg] Univer [facility]ity [facility] [place] [facility] Diastolic blood 2020-01-14 03:29:00 82 mm[Hg] Unive [facility] Heart rate 2020-01-14 03:29:00 86 /min [facility] [place] [facility] Body temperature 2020-01-14 03:29:00 36.5 Rocio [facility] [place] [facility] Respiratory rate 2020-01-14 03:29:00 20 /min [facility] [place] [facility] Body height 2020-01-14 03:29:00 180.3 cm [facility] [place] [facility] Body weight 2020-01-14 03:29:00 68.04 kg [facility] [place] [facility] BMI 2020-01-14 03:29:00 20.92 kg/m2 [facility] [place] [facility] Oxygen saturation in 2020-01-14 03:29:00 100 /min University of Arterial blood by [facility] avinash Pulse oximetry Branch Systolic blood 2020-01-14 03:29:00 136 mm[Hg] Univer [facility] [place] [facility] Diastolic blood 2020-01-14 03:29:00 82 mm[Hg] Unive rsity [facility] Heart rate 2020-01-14 03:29:00 86 /min [facility] [place] [facility] Body temperature 2020-01-14 03:29:00 36.5 Rocio [facility] [place] [facility] Respiratory rate 2020-01-14 03:29:00 20 /min [facility] [place] [facility] Body height 2020-01-14 03:29:00 180.3 cm [facility] [place] [facility] Body weight 2020-01-14 03:29:00 68.04 kg [facility] [place] [facility] BMI 2020-01-14 03:29:00 20.92 kg/m2 [facility] [place] [facility] Oxygen saturation in 2020-01-14 03:29:00 100 /min University of Arterial blood by [facility] Pulse oximetry Branch Systolic blood 2019-06-24 02:00:00 114 mm[Hg] [facility]iver [facility] [place] [facility] Diastolic blood 2019-06-24 02:00:00 67 mm[Hg] Unive rsity [facility] Heart rate 2019-06-24 02:00:00 79 /min [facility] [place] [facility] Respiratory rate 2019-06-24 02:00:00 18 /min [facility] Oxygen saturation in 2019-06-24 02:00:00 98 /min University of Arterial blood by [facility] Pulse oximetry Branch Body temperature 2019-06-23 23:19:00 36.94 Rocio [facility] [place] [facility] Body height 2019-06-23 23:19:00 180.3 cm [facility] Body weight 2019-06-23 23:19:00 62.143 kg [facility] [place] [facility] BMI 2019-06-23 23:19:00 19.11 kg/m2 [facility] [place] [facility] Systolic blood 2019-06-24 02:00:00 114 mm[Hg] Yesier sity of pressure [facility] Diastolic blood 2019-06-24 02:00:00 67 mm[Hg] Unive rsity of pressure [facility] Heart rate 2019-06-24 02:00:00 79 /min Universi [facility] Respiratory rate 2019-06-24 02:00:00 18 /min [facility] Oxygen saturation in 2019-06-24 02:00:00 98 /min [facility] Arterial blood by [facility] Pulse oximetry Branch Body temperature 2019-06-23 23:19:00 36.94 Rocio [facility] Body height 2019-06-23 23:19:00 180.3 cm [facility] Body weight 2019-06-23 23:19:00 62.143 kg Universi [facility] BMI 2019-06-23 23:19:00 19.11 kg/m2 [facility] Procedures Procedure Date / Time Performed Performing Clinician Soursheila e XR CERVICAL SPINE 3 VW 2020-04-18 08:52:23 Rosa Paul rsity of [facility] XR ANKLE 3+ VW LEFT 2020-04-18 08:52:[address] [facility] ty of [facility] XR SHOULDER 2+ VW LEFT 2020-04-18 08:52:23 Rosa Paul rsity of [facility] XR SPINE THORACIC 2 VW 2020-04-18 08:52:23 Rosa [facility] NOTICE OF PRIVACY 2020-04-18 08:16:33 Doctor Unassigned, No Univ [facility] Name Medical Branch CONSENT/REFUSAL FOR 2020-04-18 08:14:51 Doctor Unassigned, No [facility] [place] DIAGNOSIS AND Name Medical Branch TREATMENT RAPID STREP SCREEN FOR 2020-01-14 04:49:00 Stella Peña [facility] Branch NOTICE OF PRIVACY 2020-01-14 03:19:09 Doctor Unassigned, No Univ [facility] Name Medical Branch CONSENT/REFUSAL FOR 2020-01-14 03:18:44 Doctor Unassigned, No [facility] [place] DIAGNOSIS AND Name Medical Branch TREATMENT URINALYSIS 2019-06-24 01:36:00 Stella Peña [facility] US TESTICULAR TORSION 2019-06-24 00:41:54 Alexa Diaz [facility] Plan of Care Planned Activity Planned Date Details Comments Source Instructions [facility] Health Outreach Program Encounters Start End Encounter Admission Attending Care Care Encounter Source Date/Time Date/Time Type Type Clinicians Facility Department ID 2022-03-16 2022-03-16 Outpatient Benson_Sam [facility] 113 [id number] [place] 02:55:00 02:55:00 e [id number] [facility] 2022-03-16 2022-03-16 [facility] [place] - [id number] M nathaniel 00:00:00 00:00:00 Alexandria De La Cruz MD: [facility] sc[facility] [address] [facility] [address] [facility] , Ph. [phone] 2022-02-02 Outpatient Benson_Blachrista [facility] 113 97 [place] 02:26:00 02:26:00 e [id number] [facility] 2022-01-14 2022-01-14 Outpatient Benson_Blachrista [facility] 113 [id number] [place] 11:12:00 11:12:00 e [id number] [facility] 2021-12-26 2021-12-26 Outpatient Benson_Blachrista [facility] 113 97 [place] 02:36:00 02:36:00 e [facility] 2021-12-25 2021-12-25 Outpatient Benson_Blak [facility] 113 [id number] [place] 04:57:00 04:57:00 e [facility] 2021-12-24 2021-12-24 Outpatient Benson_Blak [facility] 113 [id number] [place] 02:45:00 02:45:00 e [facility] 2021-12-24 2021-12-24 Lima Arnulfo [facility] [place] - [id number] M [place] 00:00:00 00:00:00 NICOLA Hand: Siobhan meng [id number] [place] [facility] [address] [facility] [address] [facility] [place] Program [phone] , Ph. 2021-12-22 2021-12-22 Outpatient Benson_Sam [facility] 113 97 [place] 05:11:00 05:11:00 e [id number] [facility] 2021-05-15 2021-05-15 Outpatient Benson_Sam [facility] 113 97 [place] 02:35:00 02:35:00 e [id number] [facility] 2021-05-14 2021-05-14 Outpatient Benson_Sam [facility] 113 97 [place] 05:09:00 05:09:00 e [id number] da [facility] 2021-05-14 2021-05-14 Guanakito [facility] [place] - [id number] M [place] 00:00:00 00:00:00 Siobhan Cuello 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 Program ([phone]) 2021-04-30 2021-04-30 Outpatient Benson_Sam [facility] 113 97 [place] 04:15:00 04:15:00 e [id number] da [facility] 2021-04-30 2021-04-30 Guanakito [place] - [id number] M [place] 00:00:00 00:00:00 Cuate Siobhan da FARM EQUIPMENT MAINTENANCE SUPERVISOR: [id number] [facility] scop [place] [address] [facility] [place] Program [phone] , Ph. 2021-04-23 2021-04-23 Outpatient Benson_Sam SHANE [facility] 113 97 [place] 04:52:00 04:52:00 e [id number] da [facility] 2021-04-23 2021-04-23 Guanakitoaleksandar [place] - [id number] M [place] 00:00:00 00:00:00 Siobhan Cuello da FARM EQUIPMENT MAINTENANCE SUPERVISOR: [id number] [facility] Epi scop [place] [address] [facility] [place] Program [phone] , Ph. 2021-04-16 2021-04-16 Outpatient Benson_Sam [facility] 113 97 [place] 05:43:00 05:43:00 e [id number] [facility] 2021-04-16 2021-04-16 Guanakitoaleksandar [place] - [id number] M [place] 00:00:00 00:00:00 Siobhan Cuello da FARM EQUIPMENT MAINTENANCE SUPERVISOR: [id number] [facility] [place] [address] [facility] [place] Program [phone] , Ph. 2021-04-09 2021-04-09 Outpatient Benson_Sam SHANE [facility] 113 97 [place] 02:57:00 02:57:00 e [id number] da [facility] 2021-04-09 2021-04-09 Guanakitoaleksandar [place] - [id number] [place] 00:00:00 00:00:00 Cuello, [place] da FARM EQUIPMENT MAINTENANCE SUPERVISOR: [id number] [facility] [place] [address] [facility] [address] [facility] [place] Program [phone] , Ph. 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 Program ([phone]) 2021-03-26 2021-03-26 Outpatient Benson_Sam [facility] 113 97 [place] 04:06:00 04:06:00 e [id number] da [facility] 2021-03-26 2021-03-26 Guanakito [place] - [id number] [place] 00:00:00 00:00:00 Cuello [place] da FARM EQUIPMENT MAINTENANCE SUPERVISOR: [id number] [facility] Epi scop [place] [address] [facility] A, [facility] [place] Program [phone] , Ph. 2021-03-12 2021-03-12 Outpatient Benson_Sam [facility] 113 97 [place] 03:55:00 03:55:00 e [id number] da [facility] 2021-03-12 2021-03-12 Guan[place] - [id number] M [place] 00:00:00 00:00:00 Cuello [place] da FARM EQUIPMENT MAINTENANCE SUPERVISOR: [id number] [facility] scop [place] [address] [facility] [address], [facility] [place] Program [phone] , Ph. 2021 2021 Outpatient Benson_Sam [facility] 113 97 [place] 01:02:00 01:02:00 e [id number] [facility] 2021-02-26 2021-02-26 Outpatient Benson_Sam [place] [facility] 113 [place] 04:02:00 04:02:00 e [id number] [facility] 2021-02-26 2021-02-26 [place] - [id number] M [place] 00:00:00 00:00:00 Siobhan Cuello da FARM EQUIPMENT MAINTENANCE SUPERVISOR: [id number] [facility] Epi scop [place] [address] [facility] [place] Program [phone] , Ph. 2021-01-30 2021-01-30 Outpatient Benson_Sam [facility] 113 [place] 01:02:00 01:02:00 e [id number] [facility] 2021-01-29 2021-01-29 Outpatient Benson_Sam [place] [facility] 113 [place] 04:36:00 04:36:00 e [id number] [facility] 2021-01-29 2021-01-29 [place] - [id number] M [place] 00:00:00 00:00:00 Siobhan Cuello da FARM EQUIPMENT MAINTENANCE SUPERVISOR: [id number] [facility] scop [place] [address] [facility] [place] Program [phone] , Ph. 2021-01-23 2021-01-23 Outpatient Benson_Sam [facility] 113 97 [place] 02:28:00 02:28:00 e [id number] [facility] 2021-01-23 2021-01-23 [place] - [id number] M [place] 00:00:00 00:00:00 Siobhan Cuello da FARM EQUIPMENT MAINTENANCE SUPERVISOR: [id number] [facility] E[facility] scop [place] [address] [facility] - [facility] [address] [place] Program [phone] , Ph. 2021-01-20 2021-01-20 Outpatient Sean [facility] 113 [place] 02:30:00 02:30:00 e [id number] [facility] 2021-01-17 2021-01-17 Outpatient Sean [facility] 113 [id number] [place] 03:53:00 03:53:00 e [id number] [facility] 2020-04-18 2020-04-18 Emergency [facility] [id number] 03:14:19 04:37:00 Rosa Beck [id number] [place] [address] [place] [address] [id number] [facility] 2020-04-18 2020-04-18 Emergency [facility] [id number] [facility] 03:14:19 04:37:00 Rosa Beck [id number] i ty of [place] 4.2.7.[address] [place] [id number] 2020-04-18 2020-04-18 Emergency X [facility] ERT [id number] Univers 03:14:19 04:37:00 ROSA patterson [facility] 2020-01-13 2020-01-14 Emergency [facility] [id number] [facility] 22:34:02 00:22:00 Stella [place] [id number] ity of [place] [address] [place] [id number] 2020-01-13 2020-01-14 Emergency [facility] [id number] 22:34:02 00:22:00 Stella Ortega Gilliam [id number] [place] [address] [place] [address] [id number] [facility] 2020-01-13 2020-01-13 Emergency X [facility] ERT [id number] Univers 22:21:00 22:21:00 ity of [facility] 2020-01-13 2020-01-13 Orders Doctor MARIANELA [id number] Univers 00:00:00 00:00:00 Only Unassigned, ROSALINO [id number] ity of [place] [facility] 4.2.7.2.686 [place] [id number] [facility] [address] [place] 2020-01-13 2020-01-13 Orders Doctor MARIANELA [id number] 00:00:00 00:00:00 Only Unassigned, ROSALINO [id number] [place] [facility] 4.2.7.2.686 [id number] [facility] 2019-06-23 2019-06-23 Emergency [facility] [id number] [facility] 19:50:03 21:26:00 Stella Beck [id number] ity [facility] 4.2.7.2.686 [facility] [phone] [address] 2019-06-23 2019-06-23 Emergency [facility] [id number] 19:50:03 21:26:00 Stellaprudencio Beck [id number] [place] 4.2.7.2.686 [place] [id number] Results Test Description Test Time Test Comments Results Result Comments Source RAPID STREP SCREEN FOR GROUP A 2020-01-14 05:10:00 Test Item Value Reference Range Interpretation Comme nts Streptococcus pyogenes (group A) antigen (test code = 79387- 2) Negative Negative Lab Interpretation (test code = 07082-7) [facility] 01:54:00 Test Item Value Reference Range Interpretation Comments APPEARANCE (test code = Clear Clear 7850529432) COLOR (test code = Yellow Yellow 1619208393) PH (test code = 4.8-8.0 9509554474) SP GRAVITY (test code = 1.003-1.030 5467351634) GLU U QUAL (test code = Negative Negative 4753848659) BLOOD (test code = Negative Negative 2139348161) KETONES (test code = Negative Negative 1980651353) PROTEIN (test code = Negative Negative 2887-8) UROBILIN (test code = 0.2 mg/dL See_Comment [Auto mated message] [id number]) The system [employer] generated this result transmit adolfo reference range : 0-1.0 mg/dL. Th e reference range was not used to interpret this result as normal/abnormal . BILIRUBIN (test code = Negative Negative 0862987623) NITRITE (test code = Negative Negative 8685347293) LEUK YAYA (test code = Negative Negative 3136851797) RBC/HPF (test code = See_Comment [Autom ated message] [id number]) The system [employer] generated this result transmit adolfo reference range : 0 - 3 HPF. The refe rence range was not u sed to interpret th is result as normal/abnormal . WBC/HPF (test code = See_Comment [Autom ated message] 2778496554) The system [employer] generated this result transmit adolfo reference range : 0 - 5 HPF. The refe rence range was not u sed to interpret th is result as normal/abnormal . BACTERIA (test code = Negative Negative 3962933368) Lab Interpretation (test Normal code = 29683-4) [facility] TESTICULAR [id number] 01:52:48 Symmetrical arterial and venous flows within [...] reviewed this study and agree with the abovereport.[facility]
--- NOTE | 2022-04-23 20:41 | EDPHYS ---
Physician Documentation [facility] Name: Joe Velasquez Age: 27 yrs Sex: Male : 1995 Arrival Date: 04/23/2022 Time: 20:08 Bed 8 Private MD: ED Physician Danyel Damon HPI: 04/23 20:34 This 27 yrs old Male presents to ER via Ambulatory with complaints of abigail Shaking, Dizziness. 20:34 The patient presents with dizziness, generalized weakness. Onset: The symptoms/episode abigail began/occurred 4 day(s) ago. Context: occurred. Modifying factors: The symptoms are alleviated by nothing, the symptoms are aggravated by nothing. Associated signs and symptoms: The patient has no apparent associated signs or symptoms. Severity of symptoms: At their worst the symptoms were mild in the emergency department the symptoms are unchanged. Patient's baseline: Neuro: alert and fully oriented. The patient has not experienced similar symptoms in the past. Historical: - Allergies: 20:29 No Known Allergies; lp1 - Home Meds: 20:29 sertraline oral [Active]; lp1 - PMHx: 20:29 Anxiety; testicular cyste; testicular varicocle; lp1 - PSHx: 20:29 None; lp1 - Immunization history:: Adult Immunizations up to date. - Social history:: Smoking status: Patient reports the use of cigarette tobacco products, denies chronic smoking, but will smoke occasionally. - Family history:: not pertinent. ROS: 20:34 Constitutional: Negative for fever, chills, and weight loss, Eyes: Negative for injury, abigail pain, redness, and discharge, ENT: Negative for injury, pain, and discharge, Neck: Negative for injury, pain, and swelling, Cardiovascular: Negative for chest pain, palpitations, and edema, Respiratory: Negative for shortness of breath, cough, wheezing, and pleuritic chest pain, Abdomen/GI: Negative for abdominal pain, nausea, vomiting, diarrhea, and constipation, Back: Negative for injury and pain, : Negative for injury, bleeding, discharge, and swelling, MS/Extremity: Negative for injury and deformity, Skin: Negative for injury, rash, and discoloration, Neuro: Negative for headache, weakness, numbness, tingling, and seizure, Psych: Negative for depression, anxiety, suicide ideation, homicidal ideation, and hallucinations, Allergy/Immunology: Negative for hives, rash, and allergies, Endocrine: Negative for neck swelling, polydipsia, polyuria, polyphagia, and marked weight changes, Hematologic/Lymphatic: Negative for swollen nodes, abnormal bleeding, and unusual bruising. Exam: 20:34 Constitutional: This is a well developed, well nourished patient who is awake, alert, abigail and in no acute distress. Head/Face: Normocephalic, atraumatic. Eyes: Pupils equal round and reactive to light, extra-ocular motions intact. Lids and lashes normal. Conjunctiva and sclera are non-icteric and not injected. Cornea within normal limits. Periorbital areas with no swelling, redness, or edema. ENT: Nares patent. No nasal discharge, no septal abnormalities noted. Tympanic membranes are normal and external auditory canals are clear. Oropharynx with no redness, swelling, or masses, exudates, or evidence of obstruction, uvula midline. Mucous membranes moist. Neck: Trachea midline, no thyromegaly or masses palpated, and no cervical lymphadenopathy. Supple, full range of motion without nuchal rigidity, or vertebral point tenderness. No Meningismus. Chest/axilla: Normal chest wall appearance and motion. Nontender with no deformity. No lesions are appreciated. Cardiovascular: Regular rate and rhythm with a normal S1 and S2. No gallops, murmurs, or rubs. Normal PMI, no JVD. No pulse deficits. Respiratory: Lungs have equal breath sounds bilaterally, clear to auscultation and percussion. No rales, rhonchi or wheezes noted. No increased work of breathing, no retractions or nasal flaring. Abdomen/GI: Soft, non-tender, with normal bowel sounds. No distension or tympany. No guarding or rebound. No evidence of tenderness throughout. Back: No spinal tenderness. No costovertebral tenderness. Full range of motion. Male : Normal genitalia with no discharge or lesions. Skin: Warm, dry with normal turgor. Normal color with no rashes, no lesions, and no evidence of cellulitis. MS/ Extremity: Pulses equal, no cyanosis. Neurovascular intact. Full, normal range of motion. Neuro: Awake and alert, GCS 15, oriented to person, place, time, and situation. Cranial nerves II-XII grossly intact. Motor strength 5/5 in all extremities. Sensory grossly intact. Cerebellar exam normal. Normal gait. Psych: Awake, alert, with orientation to person, place and time. Behavior, mood, and affect are within normal limits. Vital Signs: 20:27 BP 147 / 88; Pulse 91; Resp 18; Temp 98.8(O); Pulse Ox 100% on R/A; Weight 70.31 kg lp1 (R); Height 6 ft. 0 in. (182.88 cm); Pain 0/10; 20:42 BP 119 / 74 Supine; Pulse 80; as6 20:46 BP 129 / 79 Sitting; Pulse 90; as6 20:48 BP 124 / 85 Standing; Pulse 103; as6 20:27 Body Mass Index 21.02 (70.31 kg, 182.88 cm) lp1 MDM: 20:23 Patient medically screened. abigail 20:37 Differential diagnosis: generalized weakness, hypovolemia, idiopathic dizziness. Data abigail reviewed: vital signs, nurses notes, lab test result(s), urinalysis. Data interpreted: surveillance system monitor: rate is 91 beats/min, rhythm is regular. Test interpretation: by ED physician or midlevel provider:. Counseling: I had a detailed discussion with the patient and/or guardian regarding: the historical points, exam findings, and any diagnostic results supporting the discharge/admit diagnosis, lab results. 20:41 ED course: not suicidal, not homicidal. [facility] 04/23 20:48 Order name: Urine Dipstick-Ancillary [facility] 04/23 20:34 Order name: Urine Dipstick-Ancillary (obtain specimen); Complete Time: 20:46 [facility] 04/23 20:34 Order name: Orthostatic Blood Pressure; Complete Time: 20:51 [facility] 04/23 20:34 Order name: PO challenge; Complete Time: 20:51 abigail Administered Medications: No medications were administered Disposition Summary: 04/23/22 20:41 Discharge Ordered Location: Home abigail Problem: new abigail Symptoms: have improved abigail Condition: Stable abigail Diagnosis - Weakness abigail - Anxiety disorder, unspecified abigail Followup: abigail - With: Private Physician - When: 2 - 3 days - Reason: Recheck today's complaints, Continuance of care, Re-evaluation by your physician Discharge Instructions: - Discharge Summary Sheet abigail - Weakness abigail - Fatigue abigail - Weakness, [id number] abigail - Deconditioning abigail - Supporting Someone With Anxiety abigail Forms: - Medication Reconciliation Form abigail - Thank You Letter abigail - Antibiotic Education abigail - Prescription Opioid Use abigail Prescriptions: - Hydroxyzine HCl 25 mg Oral Tablet - take 1 tablet by ORAL route every 6 hours As needed; 30 tablet; Refills: 0, abigail Product Selection Permitted Signatures: Danyel Damon MD MD cha Pena, Laura RN RN lp1
--- NOTE | 2022-04-23 20:41 | ER ---
Nurse's Notes [facility] Name: Joe Velasquez Age: 27 yrs Sex: Male : 1995 Arrival Date: 04/23/2022 Time: 20:08 Bed 8 Private MD: Diagnosis: Weakness;Anxiety disorder, unspecified Presentation: 04/23 20:27 Acuity: FABRIZIO 3 lp1 20:27 Chief complaint: Patient states: Feels he overheated about 4 days ago while at work, lp1 vomited, headache, light headed, dizziness, muscle tremors; reports symptoms have not resolved since; patient recently discontinued taking Duloxetine and began taking Sertraline today. Coronavirus screen: At this time, the client does not indicate any symptoms associated with coronavirus-19. Ebola Screen: No symptoms or risks identified at this time. Initial Sepsis Screen: Does the patient meet any 2 criteria? No. Patient's initial sepsis screen is negative. Does the patient have a suspected source of infection? No. Patient's initial sepsis screen is negative. Risk Assessment: Do you want to hurt yourself or someone else? Patient reports no desire to harm self or others. Onset of symptoms was April 23, 2022. 20:27 Method Of Arrival: Ambulatory lp1 Historical: - Allergies: 20:29 No Known Allergies; lp1 - Home Meds: 20:29 sertraline oral [Active]; lp1 - PMHx: 20:29 Anxiety; testicular cyste; testicular varicocle; lp1 - PSHx: 20:29 None; lp1 - Immunization history:: Adult Immunizations up to date. - Social history:: Smoking status: Patient reports the use of cigarette tobacco products, denies chronic smoking, but will smoke occasionally. - Family history:: not pertinent. Screenin:29 Abuse screen: Denies threats or abuse. Denies injuries from another. Nutritional as6 screening: No deficits noted. Tuberculosis screening: No symptoms or risk factors identified. Fall Risk None identified. Assessment: 20:28 General: Appears in no apparent distress. Behavior is cooperative, anxious. Pain: as6 Denies pain. Neuro: Level of Consciousness is awake, alert, Reports weakness. Respiratory: Respiratory effort is even, unlabored. Vital Signs: 20:27 BP 147 / 88; Pulse 91; Resp 18; Temp 98.8(O); Pulse Ox 100% on R/A; Weight 70.31 kg lp1 (R); Height 6 ft. 0 in. (182.88 cm); Pain 0/10; 20:42 BP 119 / 74 Supine; Pulse 80; as6 20:46 BP 129 / 79 Sitting; Pulse 90; as6 20:48 BP 124 / 85 Standing; Pulse 103; as6 20:27 Body Mass Index 21.02 (70.31 kg, 182.88 cm) lp1 ED Course: 20:08 Patient arrived in ED. mr 20:22 Cali Acharya, RN is Primary Nurse. as6 20:23 Danyel Damon MD is Attending Physician. [facility] 20:27 Triage completed. lp1 20:27 Arm band placed on. lp1 20:29 Bed in low position. Call light in reach. Side rails up X 1. Pulse ox on. NIBP on. as6 20:51 No provider procedures requiring assistance completed. Patient did not have IV access as6 during this emergency room visit. Administered Medications: No medications were administered Medication: 20:30 VIS not applicable for this client. lp1 Outcome: 20:41 Discharge ordered by . abigail 20:52 Discharged to home ambulatory. as6 20:52 Condition: stable 20:52 Discharge instructions given to patient, Instructed on discharge instructions, follow up and referral plans. Demonstrated understanding of instructions, follow-up care. 20:53 Patient left the ED. as6 Signatures: Danyel Damon MD MD cha Rivera, Mary mr TapiaElana RN RN lp1 Cali Acharya, AYUSH RN as6
[2022-04-23 20:48] LABS: Urine Blood Negative (Negative); Urine Glucose Negative (Negative); Urine Protein Negative (Negative); Urine Specific Gravity 1.015 (1.005-1.030)
[2022-04-23 21:00] VITALS: TEMP 98.8; O2SAT 100
[2022-04-23 21:05] VITALS: BP 124/85
== END 2022-04-23 20:53 | disposition home or self-care (01) ==
LOC: ER 20:05
DX: R53.1 Weakness (principal); F41.9 Anxiety disorder, unspecified; Z72.0 Tobacco use
CPT/HCPCS: 81003; 99283

== ENCOUNTER → 2023-12-03 | Emergency (ER) | payer SELFPAY ==
[~2023-12-03] MED LIST: ACETAMINOPHEN 500 MG TAB ONE; IBUPROFEN 400 MG TAB ONE
--- OUTSIDE RECORDS SUMMARY | 2023-12-03 01:11 | XMS REPORT | Continuity of Care Document ---
Author Name Unknown Address [address] [facility] [place] [address] [facility] thconnect Address 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 Name Role Phone Pcp, Patient Does Not Have A Primary Care Physic sukumar Rene Ruffin Attending Clinician [phone] Aneta Attending Clinician Unavailable Doctor Unassigned, [place] [facility] Attending Clinician U Rosa Renae MD Attending Clinician [phone] ROSA PAUL Attending Clinician Unavailable Stella Pñea NP Attending Clinician [phone] Aneta Admitting Clinician Unavailable ROSA PAUL Admitting Clinician Unavailable Payers Payer Name Policy Type Policy Number Effective Date Expirati on Date Source [facility] (MEDICARE REPLACEMENT/[facility] GE - HMO) [id number] 2021 00:00:00 [facility] (MEDICAID HMO) [id number] 2021 00:00:00 Problems Condition Name Condition Details Condition Category Status Onset Date Resolution Date Last Treatment Date Treating Clinician Comments Source Anxiety disorder Anxiety Disorder Problem Active 5-16 00:00: 00 [facility] Schizophre roshan Schizophre roshan Problem Active 6-23 00:00: 00 [facility] Anger management therapy Anger Management Therapy Problem Active 3-25 00:00: 00 [facility] No known active problems No known active problems Disease [facility] Allergies, Adverse Reactions, Alerts Allergy Name Allergy Type Status Severity Reaction(s) Onset Date Inactive Date Treating Clinician Comments Source NO KNOWN ALLERGIE S Drug Class Active [facility] Social History Social Habit Start Date Stop Date Quantity Comments Source Exposure to SARS-CoV-2 (event) Not sure [facility] Sex Assigned At 1995 00:00:00 1995 00:00:00 [facility] Smoking Status Start Date Stop Date Source Former Smoker [facility] Tobacco smoking consumption unknown [facility] Medications Ordered Medication Name Filled Medication Name Start Date Stop Date Current Medication? Ordering Clinician Indication Dosage Frequency Signature (SIG) Comments Components Source ibuprofen 600 mg tablet 04-18 00:00: 00 Yes [id number] 600mg Take 1 tablet by mouth every 8 (eight) hours as needed for Pain (scale 1-3). [facility] ibuprofen 600 mg tablet 04-18 00:00: 00 Yes [id number] 600mg Take 1 tablet by mouth every 8 (eight) hours as needed for Pain (scale 1-3). [facility] ibuprofen 600 mg tablet 04-18 00:00: 00 Yes [id number] 600mg Take 1 tablet by mouth every 8 (eight) hours as needed for Pain (scale 1-3). [facility] ibuprofen 600 mg tablet 04-18 00:00: 00 Yes [id number] 600mg Take 1 tablet by mouth every 8 (eight) hours as needed for Pain (scale 1-3). [facility] dexamethaso ne (DECADRON PHOSPHATE) injection 10 mg 01-13 05:15: 00 01-13 04:49 :00 No 10mg 10 mg, Intramuscu lar, ONCE, 1 dose, 01/14/20 at 0015, Routine [facility] ibuprofen (IBU) tablet 600 mg 06-24 03:00: 00 06-24 01:59 :00 No 600mg 600 mg, Oral, ONCE, 1 dose, Wed06/23/19 at 2200, ELIDA [facility] etodolac 300 mg capsule 06-23 00:00: 00 06-29 04:59 :00 No [id number] 300mg Take 1 capsule by mouth 3 (three) times daily with meals for 5 days. [facility] duloxetine 30 mg capsule,del ayed release Take 1 capsule every day by oral route in the morning. duloxetine 30 mg capsule,del ayed release Take 1 capsule every day by oral route in the morning. No 1capsul e(s) Q1D duloxetine 30 mg capsule,de layed release Take 1 capsule every day by oral route in the morning. [facility] penicillin V potassium 500 mg tablet TAKE 1 TABLET BY MOUTH 4 TIMES DAILY penicillin V potassium 500 mg tablet TAKE 1 TABLET BY MOUTH 4 TIMES DAILY No penicillin V potassium 500 mg tablet TAKE 1 TABLET BY MOUTH [address] [facility] No known medications No Un [facility] No known medications No Un [facility] Vital Signs Vital Name Observation Time Observation Value Comments S ource Height 2022-03-16 00:00:00 71 [in_i] Mariam estrada [facility] BMI (Body Mass Index) 2022-03-16 00:00:00 21.2 kg/m[facility] Body Weight 2022-03-16 00:00:00 151.8 [lb_av] M ruben [facility] BP Diastolic 2021-12-24 00:00:00 83 mm[Hg] Giancarlo angel [facility] Height 2021-12-24 00:00:00 71 [in_i] Mariam estrada [facility] BMI (Body Mass Index) 2021-12-24 00:00:00 21.2 kg/m2 Siobhan [facility] BP Systolic 2021-12-24 00:00:00 133 mm[Hg] Saúl hamilton [facility] Body Weight 2021-12-24 00:00:00 2435 [oz_av] Jannie gregg [facility] Systolic blood pressure 2020-04-18 08:19:00 141 mm[Hg] [facility] Diastolic blood pressure 2020-04-18 08:19:00 92 mm[Hg] [facility] Heart rate 2020-04-18 08:19:00 79 /min [facility] Body temperature 2020-04-18 08:19:00 36.56 Rocio [facility] Respiratory rate 2020-04-18 08:19:00 16 /min [facility] Body height 2020-04-18 08:19:00 180.3 cm [facility] Body weight 2020-04-18 08:19:00 68.04 kg [facility] BMI 2020-04-18 08:19:00 20.92 kg/m2 [facility] Oxygen saturation in Arterial blood by Pulse oximetry 2020-04-18 08:19:00 100 /min [facility] Systolic blood pressure 2020-04-18 08:19:00 141 mm[Hg] [facility] Diastolic blood pressure 2020-04-18 08:19:00 92 mm[Hg] [facility] Heart rate 2020-04-18 08:19:00 79 /min [facility] Body temperature 2020-04-18 08:19:00 36.56 Rocio [facility] Respiratory rate 2020-04-18 08:19:00 16 /min [facility] Body height 2020-04-18 08:19:00 180.3 cm [facility] Body weight 2020-04-18 08:19:00 68.04 kg [facility] BMI 2020-04-18 08:19:00 20.92 kg/m2 [facility] Oxygen saturation in Arterial blood by Pulse oximetry 2020-04-18 08:19:00 100 /min [facility] Respiratory rate 2020-01-14 03:29:00 20 /min [facility] Body height 2020-01-14 03:29:00 180.3 cm [facility] Body weight 2020-01-14 03:29:00 68.04 kg [facility] BMI 2020-01-14 03:29:00 20.92 kg/m2 [facility] Oxygen saturation in Arterial blood by Pulse oximetry 2020-01-14 03:29:00 100 /min [facility] Systolic blood pressure 2020-01-14 03:29:00 136 mm[Hg] [facility] Diastolic blood pressure 2020-01-14 03:29:00 82 mm[Hg] [facility] Heart rate 2020-01-14 03:29:00 86 /min [facility] Body temperature 2020-01-14 03:29:00 36.5 Rocio [facility] Respiratory rate 2020-01-14 03:29:00 20 /min [facility] Body height 2020-01-14 03:29:00 180.3 cm [facility] Body weight 2020-01-14 03:29:00 68.04 kg [facility] BMI 2020-01-14 03:29:00 20.92 kg/m2 [facility] Oxygen saturation in Arterial blood by Pulse oximetry 2020-01-14 03:29:00 100 /min [facility] Systolic blood pressure 2020-01-14 03:29:00 136 mm[Hg] [facility] Diastolic blood pressure 2020-01-14 03:29:00 82 mm[Hg] [facility] Heart rate 2020-01-14 03:29:00 86 /min [facility] Body temperature 2020-01-14 03:29:00 36.5 Rocio [facility] Systolic blood pressure 2019-06-24 02:00:00 114 mm[Hg] [facility] Diastolic blood pressure 2019-06-24 02:00:00 67 mm[Hg] [facility] Heart rate 2019-06-24 02:00:00 79 /min Un[facility] Respiratory rate 2019-06-24 02:00:00 18 /min [facility] Oxygen saturation in Arterial blood by Pulse oximetry 2019-06-24 02:00:00 98 /min [facility] Body temperature 2019-06-23 23:19:00 36.94 Rocio [facility] Body height 2019-06-23 23:19:00 180.3 cm [facility] Body weight 2019-06-23 23:19:00 62.143 kg [facility] BMI 2019-06-23 23:19:00 19.11 kg/m2 [facility] Systolic blood pressure 2019-06-24 02:00:00 114 mm[Hg] [facility] Diastolic blood pressure 2019-06-24 02:00:00 67 mm[Hg] [facility] Heart rate 2019-06-24 02:00:00 79 /min Unive [facility] Respiratory rate 2019-06-24 02:00:00 18 /min [facility] Oxygen saturation in Arterial blood by Pulse oximetry 2019-06-24 02:00:00 98 /min [facility] Body temperature 2019-06-23 23:19:00 36.94 Rocio [facility] Body height 2019-06-23 23:19:00 180.3 cm [facility] Body weight 2019-06-23 23:19:00 62.143 kg [facility] BMI 2019-06-23 23:19:00 19.11 kg/m2 [facility] Procedures Procedure Date / Time Performed Performing Clinicia n Source REFERRAL- REQUEST/RESPONSE 2022-04-22 05:01:00 Doctor Unassigned, [facility] REFERRAL- REQUEST/RESPONSE 2022-03-10 05:01:00 Doctor Unassigned, [place] [facility] XR SPINE THORACIC 2 2020-04-18 08:52:23 Medardo Paul [facility] XR CERVICAL SPINE 3 2020-04-18 08:52:23 Medardo Paul [facility] XR ANKLE 3+ VW LEFT 2020-04-18 08:52:23 Anatoliy Paul [facility] XR SHOULDER 2+ VW LEFT 2020-04-18 08:52:23 Medardo Paul [facility] NOTICE OF PRIVACY PRACTICES 2020-04-18 08:16:33 Doctor Unassigned, [place] [facility] CONSENT/REFUSAL FOR DIAGNOSIS AND TREATMENT 2020-04-18 08:14:51 Doctor Unassigned, [place] [facility] RAPID STREP SCREEN FOR GROUP A 2020-01-14 04:49:00 Stella Peña [facility] NOTICE OF PRIVACY PRACTICES 2020-01-14 03:19:09 Doctor Unassigned, [place] [facility] CONSENT/REFUSAL FOR DIAGNOSIS AND TREATMENT 2020-01-14 03:18:44 Doctor Unassigned, [place] [facility] URINALYSIS 2019-06-24 01:36:00 Stella Peña [facility] US TESTICULAR TORSION 2019-06-24 00:41:54 Sa sandra Diaz [facility] Plan of Care Planned Activity Planned Date Details Comments Source Instructions [facility] Encounters Start Date/Time End Date/Time Encounter Type Admission Type Attending Clinicians Care Facility Care Department Encounter ID Source 2023-04-30 16:04:24 2023-04-30 16:04:24 Outpatient [facility] [id number] Pedro Hussein 2023-01-07 17:01:24 2023-01-07 17:01:24 Outpatient [facility] [id number] Pedro Hussein 2022-07-02 00:00:00 2022-07-02 00:00:00 Letter (Out) Augustin Juan Diegosayda [facility] [id number] [id number] [facility] 2022-07-01 00:00:00 2022-07-01 00:00:00 Outpatient Sean SHANE [facility] [id number] Sonia trujillo [facility] 2022-05-27 00:00:00 2022-05-27 00:00:00 Outpatient [facility]ak e [facility] [id number] [facility] 2022-04-22 00:00:00 2022-04-22 00:00:00 Orders Only Doctor Unassigned, [place] [facility] [id number] [id number] [id number] [facility] 2022-03-16 02:55:00 2022-03-16 02:55:00 Outpatient Benson[facility]Blak e [facility] [id number] [facility] 2022-03-16 00:00:00 2022-03-16 00:00:00 Drew De La Cruz MD: [address] [place] [phone] , Ph. [phone] [facility] Islam [facility] B.[facility] [id number] [facility] 2022-03-10 00:00:00 2022-03-10 00:00:00 Orders Only Doctor Unassigned, [place] [facility] [id number] [id number] [id number] [id number] [facility] 2022-02-02 02:26:00 2022-02-02 02:26:00 Outpatient Benson_Blak e [facility] [id number] [facility] 2022-01-14 11:12:00 2022-01-14 11:12:00 Outpatient Benson[facility]Blak e [facility] [id number] [facility] 2021-12-26 02:36:00 2021-12-26 02:36:00 Outpatient [facility]Blak e [facility] [id number] [facility] 2021-12-25 04:57:00 2021-12-25 04:57:00 Outpatient [facility]Blak e [facility] [id number] [facility] 2021-12-24 02:45:00 2021-12-24 02:45:00 Outpatient Benson[facility]Blak e [facility] [id number] [facility] 2021-12-24 00:00:00 2021-12-24 00:00:00 [place] Hand PA: [address], [facility] A, [place] [address] , Ph. [facility]3] [id number] [facility] 2021-12-22 05:11:00 2021-12-22 05:11:00 Outpatient [facility]Blak e [facility] [id number] [facility] 2021-05-15 02:35:00 2021-05-15 02:35:00 Outpatient [facility]Blak e [facility] [id number] [facility] 2021-05-14 05:09:00 2021-05-14 05:09:00 Outpatient Benson[facility]Blak e [facility] [id number] [facility] 2021-05-14 00:00:00 2021-05-14 00:00:00 Guanakito Cuello LPC: [address], [place] [address] , Ph. [facility] Islam [facility]3] [id number] [facility] 2021-05-07 03:47:00 2021-05-07 03:47:00 Outpatient Benson[facility]Blak e [facility] [id number] [facility] 2021-05-07 00:00:00 2021-05-07 00:00:00 Guanakito Cuello, INSTRUMENT REPAIR SUPERVISOR: [address] [place] [address] , Ph. [phone] [facility] [place] Islam HOP [facility] [id number] [facility] 2021-04-30 04:15:00 2021-04-30 04:15:00 Outpatient Benson[facility]Blak e [facility] [id number] [facility] 2021-04-30 00:00:00 2021-04-30 00:00:00 Guanakito Cuello, INSTRUMENT REPAIR SUPERVISOR: [address], [facility] [place] [address] , [address] [facility]3] [id number] [facility] 2021-04-23 04:52:00 2021-04-23 04:52:00 Outpatient Benson[facility]Blak e [facility] [id number] [facility] 2021-04-23 00:00:00 2021-04-23 00:00:00 Guanakito Cuello, INSTRUMENT REPAIR SUPERVISOR: [address], [facility] [place] [address] , Ph[address] [facility] HOP [facility] [id number] [facility] 2021-04-16 05:43:00 2021-04-16 05:43:00 Outpatient Benson[facility]Blak e [facility] [id number] [facility] 2021-04-16 00:00:00 2021-04-16 00:00:00 Guanakito Cuello, INSTRUMENT REPAIR SUPERVISOR: [address] [place] [address] , Ph. [facility] [place] [facility] [place] [facility]3] [id number] [facility] 2021-04-09 02:57:00 2021-04-09 02:57:00 Outpatient Benson[facility]Blak e [facility] [id number] [facility] 2021-04-09 00:00:00 2021-04-09 00:00:00 Guanakito Cuello, INSTRUMENT REPAIR SUPERVISOR: [address], [place] [address] , Ph. [facility]3] [id number] [facility] 2021-04-02 03:22:00 2021-04-02 03:22:00 Outpatient [facility]Blak e [facility] [id number] [facility] 2021-04-02 00:00:00 2021-04-02 00:00:00 Guanakito Cuello, INSTRUMENT REPAIR SUPERVISOR: [address] [place] [address] , Ph. [phone] [facility] Islam [facility] [id number] [facility] 2021-03-26 04:06:00 2021-03-26 04:06:00 Outpatient Benson[facility]Blak e [facility] [id number] [facility] 2021-03-26 00:00:00 2021-03-26 00:00:00 Guanakito Cuello, INSTRUMENT REPAIR SUPERVISOR: [address] [place] [address] , Ph. [facility] Islam [facility]3] [id number] [facility] 2021-03-12 03:55:00 2021-03-12 03:55:00 Outpatient [facility]Blak e [facility] [id number] [facility] 2021-03-12 00:00:00 2021-03-12 00:00:00 Guanakito Cuello, SILVA: [address], [facility] [address], [place] [address] , Ph. [facility]3] [id number] [facility] 2021 01:02:00 2021 01:02:00 Outpatient Benson_Blak e [facility] [id number] [facility] 2021-02-26 04:02:00 2021-02-26 04:02:00 Outpatient Benson_Blak e [facility] [id number] [facility] 2021-02-26 00:00:00 2021-02-26 00:00:00 Guanakito Cuello, INSTRUMENT REPAIR SUPERVISOR: [address], [facility] [place] [address] , Ph. [facility]3] [id number] [facility] 2021-01-30 01:02:00 2021-01-30 01:02:00 Outpatient [facility]Blak e [facility] [id number] [facility] 2021-01-29 04:36:00 2021-01-29 04:36:00 Outpatient Benson_Blak e [facility] [id number] [facility] 2021-01-29 00:00:00 2021-01-29 00:00:00 Guanakito Cuello, INSTRUMENT REPAIR SUPERVISOR: [address], [address], [place] [address] , Ph. [facility]3] [id number] [facility] 2021-01-23 02:28:00 2021-01-23 02:28:00 Outpatient [facility]Blak e [facility] [id number] [facility] 2021-01-23 00:00:00 2021-01-23 00:00:00 Guanakito Cuello, INSTRUMENT REPAIR SUPERVISOR: [address], [address], [place] [address] , Ph. [facility] Islam [facility]3] [id number] [facility] 2021-01-20 02:30:00 2021-01-20 02:30:00 Outpatient Benson[facility]Blak e [facility] [id number] [facility] 2021-01-17 03:53:00 2021-01-17 03:53:00 Outpatient Benson_Blak e [facility] [id number] [facility] 2020-04-18 03:14:19 2020-04-18 04:37:00 Emergency Rosa Paul [facility] [id number] [id number] [facility] 2020-04-18 03:14:19 2020-04-18 04:37:00 Emergency X ROSA PAUL [facility] E[facility] [id number] [facility] 2020-04-18 03:14:19 2020-04-18 04:37:00 Emergency Rosa Paul [facility] [id number] 350.1.13.10 [id number] 2020-01-13 22:34:02 2020-01-14 00:22:00 Emergency Stella Peña [facility] [id number] [id number] [id number] [facility] 2020-01-13 22:34:02 2020-01-14 00:22:00 Emergency Stella Peña [facility] [id number] 350.1.13.10 [id number] 2020-01-13 22:21:00 2020-01-13 22:21:00 Emergency X [facility] ERT [id number] [facility] 2020-01-13 00:00:00 2020-01-13 00:00:00 Orders Only Doctor Unassigned, [place] [facility] [id number] 350.1.13.10 [id number] [facility] 2020-01-13 00:00:00 2020-01-13 00:00:00 Orders Only Doctor Unassigned, [place] [facility] [id number] 350.1.13.10 [id number] 2019-06-23 19:50:03 2019-06-23 21:26:00 Emergency Stella Peña [facility] [id number] 350.1.13.10 [id number] [facility] 2019-06-23 19:50:03 2019-06-23 21:26:00 Emergency Stella Peña [facility] [id number] 350.1.13.10 [id number] [id number] Results Test Description Test Time Test Comments Results Result Co [facility] Source [facility]* Test Item Value Reference Range Interpretation Comme nts APPEARANCE (test code = 6525824540) Clear Clear COLOR (test code = 4384178446) Yellow Yellow PH (test code = 4994973174) 4.8-8.0 SP GRAVITY (test code = 5388903454) 1.003-1.030 GLU U QUAL (test code = 8960988573) Negative Negative BLOOD (test code = 7500374183) Negative Negative KETONES (test code = 1458548981) Negative Negative PROTEIN (test code = 2887-8) Negative Negative UROBILIN (test code = 4050461710) 0.2 mg/dL See_Comment [Automated [facility]] The system which generated this result transmitted reference range: 0-1.0 mg/dL. The reference range was not used to interpret this result as normal/abnormal. BILIRUBIN (test code = 2805133419) Negative Negative NITRITE (test code = 2953374104) Negative Negative LEUK YAYA (test code = 1385304356) Negative Negative RBC/HPF (test code = 3816305996) See_Comment [[facility]ated [facility]] The system which generated this result transmitted reference range: 0 - 3 HPF. The reference range was not used to interpret this result as normal/abnormal. WBC/HPF (test code = 1366381997) See_Comment [[facility]] The system which generated this result transmitted reference range: 0 - 5 HPF. The reference range was not used to interpret this result as normal/abnormal. BACTERIA (test code = 7999319479) Negative Negative Lab Interpretation (test code = 22108-6) Normal [facility] [id number] 01:52:48 Symmetrical arterial and venous flows within both testicles. Large right epididymal cyst measuring 2.2 cm with internal debris.Spermatocele is also a consideration. IMateo MD., have reviewed this study and agree [...] of calcification is noted within thesuperior left t esticle.Doppler interrogation demonstrate symmetrical arterial and venous flowwithin both testicle.EPIDIDYMIDES: Large right epididymal cyst measuring 2.2 cm with internaldebris .BLOOD FLOW: Symmetric arterial waveforms.SCROTUM: No hydrocele.VARICOCELE: Bilateral varicoceles noted.IMPRESSIONSymmetrical arterial and venous flows within both testicles.Large right epididymal cyst measuring 2.2 cm with internal debris.Spermatocele is also a consideration.I, Silvina Lugo MD., have reviewed this studyand agree with the abovereport.[facility]
--- NOTE | 2023-12-03 01:28 | ER ---
Nurse's Notes [facility] Name: Joe Velasquez Age: 28 yrs Sex: Male : 1995 Arrival Date: 12/03/2023 Time: 01:07 Bed 5 Private MD: Diagnosis: Headache;Dental caries, unspecified Presentation: 12/03 01:11 Chief complaint: Patient states: left upper tooth pain of 7 that radiates to left pf1 temporal region,onset 3 hours ago with cavity,onset 7 years ago. Patient stated took Ibuprofen 400mg less than 1 hour ago. 01:11 Coronavirus screen: Vaccine status: Patient reports being unvaccinated. Client denies pf1 travel out of the [place] in the last 14 days. At this time, the client does not indicate any symptoms associated with coronavirus-19. Ebola Screen: Patient negative for fever greater than or equal to 101.5 degrees Fahrenheit, and additional compatible Ebola Virus Disease symptoms. Initial Sepsis Screen: Does the patient meet any 2 criteria? HR > 90 bpm. No. Patient's initial sepsis screen is negative. Does the patient have a suspected source of infection? No. Patient's initial sepsis screen is negative. Risk Assessment: Do you want to hurt yourself or someone else? Patient reports no desire to harm self or others. 01:11 Method Of Arrival: Ambulatory pf1 01:11 Acuity: FABRIZIO 4 pf1 01:11 Onset of symptoms was December 03, 2023 at 01:54. as9 Triage Assessment: 01:48 Headache History: The patient has had previous headaches and this one is similar to as9 previous episodes. General: Appears uncomfortable, Behavior is calm, cooperative, appropriate for age. Pain: Also complains of no other associated symptoms. Historical: - Allergies: 01:24 No Known Allergies; pf1 - PMHx: 01:24 Anxiety; testicular cyste; testicular varicocle; pf1 - PSHx: 01:24 None; pf1 - Immunization history:: Adult Immunizations not up to date, Client reports having NOT received the Covid vaccine. Last tetanus immunization: > 10 years ago Flu vaccine is not up to date. - Social history:: Smoking status: Reported history of juuling and/or vaping. Patient/guardian denies using alcohol, street drugs. - Family history:: not pertinent. Screenin:11 [facility] ED Fall Risk Assessment (Adult) History of falling in the last 3 months, as9 including since admission No falls in past 3 months (0 pts) Confusion or Disorientation No (0 pts) Intoxicated or Sedated No (0 pts) Impaired Gait No (0 pts) Mobility Assist Device Used No (0 pt) Altered Elimination No (0 pt) Score/Fall Risk Level 0 - 2 = Low Risk Oriented to surroundings, Maintained a safe environment, Hourly rounding (assess needs \T\ fall precautionary measures) done. Nutritional screening: No deficits noted. Tuberculosis screening: No symptoms or risk factors identified. 01:30 Abuse screen: Denies threats or abuse. Denies injuries from another. ha1 Assessment: 01:11 General: Appears uncomfortable, Behavior is cooperative. Pain: Complains of pain in ha1 tooth ache Pain does not radiate. Pain currently is 10 out of 10 on a pain scale. Quality of pain is described as throbbing, Pain began gradually. Neuro: Level of Consciousness is awake, alert, obeys commands, Oriented to person, place, time, situation. Cardiovascular: Capillary refill < 3 seconds Patient's skin is warm and dry. Respiratory: Airway is patent Respiratory effort is even, unlabored, Respiratory pattern is regular, symmetrical. Derm: Skin is pink, warm \T\ dry. Musculoskeletal: Circulation, motion, and sensation intact. Range of motion: intact in all extremities. Vital Signs: 01:11 BP 137 / 92; Pulse 92; Resp 18; Temp 98.2; Pulse Ox 100% on R/A; Weight 81.65 kg; pf1 Height 5 ft. 11 in. ; Pain 7/10; 01:11 Body Mass Index 25.10 (81.65 kg, 180.34 cm) pf1 01:11 Pain Scale: Adult pf1 ED Course: 01:09 Patient arrived in ED. [email or web address] 01:11 Arm band placed on left wrist. as9 01:12 Ruy Borrego MD is Attending Physician. rt 01:24 Triage completed. pf1 01:48 No provider procedures requiring assistance completed. Patient did not have IV access as9 during this emergency room visit. 01:52 Patient has correct armband on for positive identification. Bed in low position. Call as9 light in reach. Side rails up X 1. Provided Education on: medication administration. Administered Medications: 01:34 Drug: Ibuprofen PO 400 mg PO once Route: PO; ha1 01:46 Follow up: Response: No adverse reaction; Marked relief of symptoms as9 01:34 Drug: Acetaminophen PO 1000 mg PO once Route: PO; ha1 01:46 Follow up: Response: No adverse reaction; Marked relief of symptoms as9 Medication: 01:51 VIS not applicable for this client. as9 Outcome: 01:27 Discharge ordered by . rt 01:49 Discharged to home ambulatory, with family, as9 01:49 Condition: stable 01:49 Discharge instructions given to patient, family, Instructed on discharge instructions, follow up and referral plans. medication usage, Demonstrated understanding of instructions, follow-up care, medications, Prescriptions given X 1, 01:54 Patient left the ED. as9 Signatures: Allison Gonzalez [email or web address] Shalonda Obrien, RN RN ha1 Ruy Borrego MD MD rt Stella Saxena RN RN pf1 Otis Lopez RN RN as9 Corrections: (The following items were deleted from the chart) 01:26 01:11 Chief complaint: Patient states: left upper tooth pain of 7 with cavity,onset 7 pf1 years that radiates to left temporal region,onset 3 hours ago. Patient stated took Ibuprofen 400mg less than 1 hour ago. pf1
--- NOTE | 2023-12-03 01:28 | EDPHYS ---
Physician Documentation [facility] Name: Joe Velasquez Age: 28 yrs Sex: Male : 1995 Arrival Date: 12/03/2023 Time: 01:07 Bed 5 Private MD: ED Physician Ruy Borrego HPI: 12/03 02:12 This 28 yrs old Male presents to ER via Ambulatory with complaints of Headache, rt Toothache. 02:12 Patient presents to the ED with a left upper molar tooth ache. Patient reports that he rt had a cavity for several years, started hurting him over the past couple hours. Patient reports pain to his head on that side. Which he attributes to the cavity. Denies other acute complaints, symptoms are moderate in severity, no other aggravating with any factors. Pain is aching nature, otherwise radiating.. Historical: - Allergies: 01:24 No Known Allergies; pf1 - PMHx: 01:24 Anxiety; testicular cyste; testicular varicocle; pf1 - PSHx: :24 None; pf1 - Immunization history:: Adult Immunizations not up to date, Client reports having NOT received the Covid vaccine. Last tetanus immunization: > 10 years ago Flu vaccine is not up to date. - Social history:: Smoking status: Reported history of juuling and/or vaping. Patient/guardian denies using alcohol, street drugs. - Family history:: not pertinent. ROS: 02:12 Constitutional: Negative for fever, chills, and weight loss, Cardiovascular: Negative rt for chest pain, palpitations, and edema, Respiratory: Negative for shortness of breath, cough, wheezing, and pleuritic chest pain, Abdomen/GI: Negative for abdominal pain, nausea, vomiting, diarrhea, and constipation, MS/Extremity: Negative for injury and deformity, Skin: Negative for injury, rash, and discoloration, 02:12 ENT: Positive for dental pain, Negative for sinus congestion, 02:12 Neuro: Positive for headache, Negative for altered mental status, Exam: 02:12 Constitutional: This is a well developed, well nourished patient who is awake, alert, rt and in no acute distress. Head/Face: Normocephalic, atraumatic. Chest/axilla: Normal chest wall appearance and motion. Nontender with no deformity. No lesions are appreciated. Cardiovascular: Regular rate and rhythm with a normal S1 and S2. No gallops, murmurs, or rubs. Normal PMI, no JVD. No pulse deficits. Respiratory: Lungs have equal breath sounds bilaterally, clear to auscultation and percussion. No rales, rhonchi or wheezes noted. No increased work of breathing, no retractions or nasal flaring. Abdomen/GI: Soft, non-tender, with normal bowel sounds. No distension or tympany. No guarding or rebound. No evidence of tenderness throughout. Skin: Warm, dry with normal turgor. Normal color with no rashes, no lesions, and no evidence of cellulitis. MS/ Extremity: Pulses equal, no cyanosis. Neurovascular intact. Full, normal range of motion. Neuro: Awake and alert, GCS 15, oriented to person, place, time, and situation. Cranial nerves II-XII grossly intact. Motor strength 5/5 in all extremities. Sensory grossly intact. Cerebellar exam normal. Normal gait. 02:12 ENT: Dental caries noted to the left upper molars, no other appreciable swelling, no drainable abscess. Vital Signs: 01:11 BP 137 / 92; Pulse 92; Resp 18; Temp 98.2; Pulse Ox 100% on R/A; Weight 81.65 kg; pf1 Height 5 ft. 11 in. ; Pain 7/10; 01:11 Body Mass Index 25.10 (81.65 kg, 180.34 cm) pf1 01:11 Pain Scale: Adult pf1 MDM: 01:21 Patient medically screened. rt 02:12 Differential diagnosis: Dental caries, migraine. Data reviewed: vital signs, nurses rt notes. I considered the following discharge prescriptions or medication management in the emergency department Medications were administered in the Emergency Department. See MAR. Test considered but Not performed: CT: Patient stated that he was worried about a brain tumor, offered patient CT scan to rule this out, however, I believe that tumor is unlikely in this patient. He declines at this time, states that we will follow-up.. Counseling: I had a detailed discussion with the patient and/or guardian regarding the historical points, exam findings, and any diagnostic results supporting the discharge/admit diagnosis, the need for outpatient follow up, to return to the emergency department if symptoms worsen or persist or if there are any questions or concerns that arise at home. Administered Medications: 01:34 Drug: Ibuprofen PO 400 mg PO once Route: PO; ha1 01:46 Follow up: Response: No adverse reaction; Marked relief of symptoms as9 01:34 Drug: Acetaminophen PO 1000 mg PO once Route: PO; ha1 01:46 Follow up: Response: No adverse reaction; Marked relief of symptoms as9 Disposition Summary: 12/03/23 01:27 Discharge Ordered Notes: Location: Home rt Problem: new rt Symptoms: are unchanged rt Condition: Stable rt Diagnosis - Headache rt - Dental caries, unspecified rt Followup: rt - With: Private Physician - When: 5 - 6 days - Reason: Discharge Instructions: - Discharge Summary Sheet rt - General Headache Without Cause rt - Dental Pain, [id number] rt Forms: - Medication Reconciliation Form rt - Thank You Letter rt - Antibiotic Education rt - Prescription Opioid Use rt - Patient Portal Instructions rt - Leadership Thank You Letter rt Prescriptions: - Amoxicillin 875 mg Oral Tablet - take 1 tablet ORAL route every 12 hours for 10 days; 20 tablet; Refills: 0, rt Product Selection Permitted Signatures: Shalonda Obrien RN RN ha1 Ruy Borrego MD MD rt Stella Saxena RN RN pf1 Otis Lopez RN as9
[2023-12-03 03:02] VITALS: BP 137/92; TEMP 98.2; O2SAT 100
== END ==
LOC: ER 01:07
DX: R51.9 Headache, unspecified (principal); K02.9 Dental caries, unspecified

== ENCOUNTER 2024-08-14 06:44 | Emergency (ER) | payer SELFPAY ==
--- OUTSIDE RECORDS SUMMARY | 2024-08-14 06:48 | XMS REPORT | Continuity of Care Document ---
Author Name Unknown Address [address] [facility] [address] [place] [address] [facility] thconnect Address [address] [facility] 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 (MEDICARE REPLACEMENT/ADVANTA GE - HMO) [id number] 2021 00:00:00 [facility] (MEDICAID HMO) [id number] 2021 00:00:00 Problems Condition Name Condition Details Condition Category Status Onset Date Resolution Date Last Treatment Date Treating Clinician Comments Source Anxiety disorder Anxiety Disorder Problem Active 5-16 00:00: 00 [facility] Schizophre roshan Schizophre roshan Problem Active 6-23 00:00: 00 [facility] Anger management therapy Anger Management Therapy Problem Active 3-25 00:00: 00 [facility] [facility] No known active problems No known active problems Disease [facility] Allergies, Adverse Reactions, Alerts Allergy Name Allergy Type Status Severity Reaction(s) Onset Date Inactive Date Treating Clinician Comments Source NO KNOWN ALLERGIE S Drug Class Active [facility] Social History Social Habit Start Date Stop Date Quantity Comments Source Exposure to SARS-CoV-2 (event) Not sure [facility] Sex Assigned At 1995 00:00:00 1995 00:00:00 [facility] Smoking Status Start Date Stop Date Source Former Smoker [facility] Tobacco smoking consumption unknown [facility] Medications Ordered Medication Name Filled Medication Name Start Date Stop Date Current Medication? Ordering Clinician Indication Dosage Frequency Signature (SIG) Comments Components Source ibuprofen 600 mg tablet 04-18 00:00: 00 Yes [id number] 600mg Take 1 tablet by mouth every 8 (eight) hours as needed for Pain (scale 1-3). [facility] dexamethaso ne (DECADRON PHOSPHATE) injection 10 mg 01-13 05:15: 00 01-13 04:49 :00 No 10mg 10 mg, Intramuscu lar, ONCE, 1 dose, 01/14/20 at 0015, Routine [facility] ibuprofen (IBU) tablet 600 mg 06-24 03:00: 00 06-24 01:59 :00 No 600mg 600 mg, Oral, ONCE, 1 dose, 06/23/19 at 2200, [facility] etodolac 300 mg capsule 06-23 00:00: 00 06-29 04:59 :00 No [id number] 300mg Take 1 capsule by mouth 3 (three) times daily with meals for 5 days. [facility] duloxetine 30 mg capsule,del ayed release Take 1 capsule every day by oral route in the morning. duloxetine 30 mg capsule,del ayed release Take 1 capsule every day by oral route in the morning. No 1capsul e(s) Q1D duloxetine 30 mg capsule,de layed release Take 1 capsule every day by oral route in the morning. [facility] penicillin V potassium 500 mg tablet TAKE 1 TABLET BY MOUTH 4 TIMES DAILY penicillin V potassium 500 mg tablet TAKE 1 TABLET BY MOUTH 4 TIMES DAILY No penicillin V potassium 500 mg tablet TAKE 1 TABLET BY MOUTH 4 TIMES DAILY [facility] No known medications No Un kendell [facility] No known medications No Un kendell [facility] Vital Signs Vital Name Observation Time Observation Value Comments S ource Height 2022-03-16 00:00:00 71 [in_i] [facility] BMI (Body Mass Index) 2022-03-16 00:00:00 21.2 kg/m2 [facility] Body Weight 2022-03-16 00:00:00 151.8 [lb_av] M [place] [facility] BP Diastolic 2021-12-24 00:00:00 83 mm[Hg] Giancarlo agorda [facility] Height 2021-12-24 00:00:00 71 [in_i] [facility] BMI (Body Mass Index) 2021-12-24 00:00:00 21.2 kg/m2 [facility] BP Systolic 2021-12-24 00:00:00 133 mm[Hg] [place] al[facility]so [facility] Body Weight 2021-12-24 00:00:00 2435 [oz_av] Ma larrya [facility] Systolic blood pressure 2020-04-18 08:19:00 141 mm[Hg] [facility] Diastolic blood pressure 2020-04-18 08:19:00 92 mm[Hg] [facility] Heart rate 2020-04-18 08:19:00 79 /min Unive [facility] Body temperature 2020-04-18 08:19:00 36.56 Rocio [facility] Respiratory rate 2020-04-18 08:19:00 16 /min [facility] Body height 2020-04-18 08:19:00 180.3 cm [facility] Body weight 2020-04-18 08:19:00 68.04 kg [facility] BMI 2020-04-18 08:19:00 20.92 kg/m2 [facility] Oxygen saturation in Arterial blood by Pulse oximetry 2020-04-18 08:19:00 100 /min [facility] Systolic blood pressure 2020-04-18 08:19:00 141 mm[Hg] [facility] Diastolic blood pressure 2020-04-18 08:19:00 92 mm[Hg] [facility] Heart rate 2020-04-18 08:19:00 79 /min [facility] Body temperature 2020-04-18 08:19:00 36.56 Rocio [facility] Respiratory rate 2020-04-18 08:19:00 16 /min [facility] Body height 2020-04-18 08:19:00 180.3 cm [facility] Body weight 2020-04-18 08:19:00 68.04 kg [facility] BMI 2020-04-18 08:19:00 20.92 kg/m2 [facility] Oxygen saturation in Arterial blood by Pulse oximetry 2020-04-18 08:19:00 100 /min [facility] Systolic blood pressure 2020-01-14 03:29:00 136 mm[Hg] [facility] Diastolic blood pressure 2020-01-14 03:29:00 82 mm[Hg] [facility] Heart rate 2020-01-14 03:29:00 86 /min [facility] Body temperature 2020-01-14 03:29:00 36.5 Rocio [facility] Respiratory rate 2020-01-14 03:29:00 20 /min [facility] Body height 2020-01-14 03:29:00 180.3 cm [facility] Body weight 2020-01-14 03:29:00 68.04 kg [facility] BMI 2020-01-14 03:29:00 20.92 kg/m2 [facility] Oxygen saturation in Arterial blood by Pulse oximetry 2020-01-14 03:29:00 100 /min [facility] Systolic blood pressure 2020-01-14 03:29:00 136 mm[Hg] [facility] Diastolic blood pressure 2020-01-14 03:29:00 82 mm[Hg] [facility] Heart rate 2020-01-14 03:29:00 86 /min [facility] Body temperature 2020-01-14 03:29:00 36.5 Rocio [facility] Respiratory rate 2020-01-14 03:29:00 20 /min [facility] Body height 2020-01-14 03:29:00 180.3 cm [facility] Body weight 2020-01-14 03:29:00 68.04 kg [facility] BMI 2020-01-14 03:29:00 20.92 kg/m2 [facility] Oxygen saturation in Arterial blood by Pulse oximetry 2020-01-14 03:29:00 100 /min [facility] Systolic blood pressure 2019-06-24 02:00:00 114 mm[Hg] [facility] Diastolic blood pressure 2019-06-24 02:00:00 67 mm[Hg] [facility] Heart rate 2019-06-24 02:00:00 79 /min [facility] Respiratory rate 2019-06-24 02:00:00 18 /min [facility] Oxygen saturation in Arterial blood by Pulse oximetry 2019-06-24 02:00:00 98 /min [facility] Body temperature 2019-06-23 23:19:00 36.94 Roico [facility] Body height 2019-06-23 23:19:00 180.3 cm [facility] weight 2019-06-23 23:19:00 62.143 kg [facility] BMI 2019-06-23 23:19:00 19.11 kg/m2 [facility] Systolic blood pressure 2019-06-24 02:00:00 114 mm[Hg] [facility] Diastolic blood pressure 2019-06-24 02:00:00 67 mm[Hg] Omar o [facility] Heart rate 2019-06-24 02:00:00 79 /min [facility] Respiratory rate 2019-06-24 02:00:00 18 /min [facility] Oxygen saturation in Arterial blood by Pulse oximetry 2019-06-24 02:00:00 98 /min [facility] Body temperature 2019-06-23 23:19:00 36.94 Rocio [facility] Body height 2019-06-23 23:19:00 180.3 cm [facility] Body weight 2019-06-23 23:19:00 62.143 kg [facility] BMI 2019-06-23 23:19:00 19.11 kg/m2 [facility] Procedures Procedure Date / Time Performed Performing Clinicia n Source REFERRAL- REQUEST/RESPONSE 2022-04-22 05:01:00 Doctor Unassigned, [place] [facility] REFERRAL- REQUEST/RESPONSE 2022-03-10 05:01:00 Doctor Unassigned, [place] [facility] XR SPINE THORACIC 2 VW 2020-04-18 08:52:23 Medardo Paul [facility] XR CERVICAL SPINE 3 VW 2020-04-18 08:52:23 Medardo Paul [facility] XR ANKLE 3+ VW LEFT 2020-04-18 08:52:23 Anatoliy Paul [facility] XR SHOULDER 2+ VW LEFT 2020-04-18 08:52:23 Medardo Paul [facility] NOTICE OF PRIVACY PRACTICES 2020-04-18 08:16:33 Doctor Unassigned, [place] [facility] CONSENT/REFUSAL FOR DIAGNOSIS AND TREATMENT 2020-04-18 08:14:51 Doctor Unassigned, [place] [facility] RAPID STREP SCREEN FOR GROUP A 2020-01-14 04:49:00 Stella Peña [facility] NOTICE OF PRIVACY PRACTICES 2020-01-14 03:19:09 Doctor Unassigned, [place] [facility] CONSENT/REFUSAL FOR DIAGNOSIS AND TREATMENT 2020-01-14 03:18:44 Doctor Unassigned, [place] [facility] URINALYSIS 2019-06-24 01:36:00 Stella Peña [facility] US TESTICULAR TORSION 2019-06-24 00:41:54 Sa sandra Diaz [facility] Plan of Care Planned Activity Planned Date Details Comments Source Instructions Siobhan Lott [facility] Encounters Start Date/Time End Date/Time Encounter Type Admission Type Attending [facility] Facility Care Department Encounter ID Source 2023-04-30 16:04:24 2023-04-30 16:04:24 Outpatient [facility] [id number] Pedro Chisholm Keenan 2023-01-07 17:01:24 2023-01-07 17:01:24 Outpatient [facility] [id number] Pedro Chisholm Keenan 2022-07-02 00:00:00 2022-07-02 00:00:00 Letter (Out) Rene Ruffin [facility] [id number] [facility] 2022-07-01 00:00:00 2022-07-01 00:00:00 Outpatient [facility]Blak e [facility] [id number] [facility] 2022-05-27 00:00:00 2022-05-27 00:00:00 Outpatient [facility]ak e [facility] [id number] [facility] 2022-04-22 00:00:00 2022-04-22 00:00:00 Orders Only Doctor Unassigned, [place] [facility] [id number] [id number] [id number] [facility] 2022-03-16 02:55:00 2022-03-16 02:55:00 Outpatient [facility]ak e [facility] [id number] [facility] 2022-03-16 00:00:00 2022-03-16 00:00:00 Drew De La Cruz MD: [address] [address] , Ph. [phone] [facility] [place] [facility] [facility] B.[facility] [id number] [facility] 2022-03-10 00:00:00 2022-03-10 00:00:00 Orders Only Doctor Unassigned, [place] [facility] [id number] [id number] [id number] [facility] 2022-02-02 02:26:00 2022-02-02 02:26:00 Outpatient [facility]ak [facility] [id number] [facility] 2022-01-14 11:12:00 2022-01-14 11:12:00 Outpatient [facility] [id number] [facility] 2021-12-26 02:36:00 2021-12-26 02:36:00 Outpatient [facility]ak e [facility] [id number] [facility] 2021-12-25 04:57:00 2021-12-25 04:57:00 Outpatient [facility] [id number] [facility] 2021-12-24 02:45:00 2021-12-24 02:45:00 Outpatient [facility] [id number] [facility] 2021-12-24 00:00:00 2021-12-24 00:00:00 NICOLA Newell: [address], [place] [address] , Ph. [facility] - [facility] [id number] [facility] 2021-12-22 05:11:00 2021-12-22 05:11:00 Outpatient [facility]ak e [facility] [id number] [facility] 2021-05-15 02:35:00 2021-05-15 02:35:00 Outpatient [facility]ak [facility] [id number] [facility] 2021-05-14 05:09:00 2021-05-14 05:09:00 Outpatient [facility] [id number] [facility] 2021-05-14 00:00:00 2021-05-14 00:00:00 Guanakito Cuello, YARDMASTER: [address] [place] [address] , [facility]. [facility] [id number] [facility] 2021-05-07 03:47:00 2021-05-07 03:47:00 Outpatient [facility]ak e [facility] [id number] [facility] 2021-05-07 00:00:00 2021-05-07 00:00:00 Guanakito Cuello, YARDMASTER: [address] [place] [address] , Ph. [phone] [facility] B.[facility] [id number] [facility] 2021-04-30 04:15:00 2021-04-30 04:15:00 Outpatient [facility]ak e [facility] [id number] [facility] 2021-04-30 00:00:00 2021-04-30 00:00:00 Guanakito Cuello, YARDMASTER: [address], [address], [place] [address] , [facility]. [facility] [id number] [facility] 2021-04-23 04:52:00 2021-04-23 04:52:00 Outpatient [facility]ak e [facility] [id number] [facility] 2021-04-23 00:00:00 2021-04-23 00:00:00 Guanakito Cuello, YARDMASTER: [address], [address], [place] [address] , Ph. [facility] [id number] [facility] 2021-04-16 05:43:00 2021-04-16 05:43:00 Outpatient [facility] [id number] [facility] 2021-04-16 00:00:00 2021-04-16 00:00:00 Guanakito Cuello, YARDMASTER: [address], [address], [place] [address] , Ph. [facility] [id number] [facility] 2021-04-09 02:57:00 2021-04-09 02:57:00 Outpatient [facility] e [facility] [id number] [facility] 2021-04-09 00:00:00 2021-04-09 00:00:00 Guanakito Cuello, YARDMASTER: [address], [place] [address] , Ph. [facility] [id number] [facility] 2021-04-02 03:22:00 2021-04-02 03:22:00 Outpatient [facility] e [facility] [id number] [facility] 2021-04-02 00:00:00 2021-04-02 00:00:00 Guanakito Cuello, YARDMASTER: [address] [place] [address] , Ph. [phone] [facility] B.[facility] [id number] [facility] 2021-03-26 04:06:00 2021-03-26 04:06:00 Outpatient [facility]ak e [facility] [id number] [facility] 2021-03-26 00:00:00 2021-03-26 00:00:00 Guanakito Cuello, YARDMASTER: [address] [place] [address] , Ph. [facility] [id number] [facility] 2021-03-12 03:55:00 2021-03-12 03:55:00 Outpatient [facility]ak e [facility] [id number] [facility] 2021-03-12 00:00:00 2021-03-12 00:00:00 Guanakito Cuello, YARDMASTER: [address] [place] [address] , Ph. [facility] [id number] [facility] 2021 01:02:00 2021 01:02:00 Outpatient [facility] [id number] [facility] 2021-02-26 04:02:00 2021-02-26 04:02:00 Outpatient [facility]ak e [facility] [id number] [facility] 2021-02-26 00:00:00 2021-02-26 00:00:00 Guanakito Cuello, YARDMASTER: [address], [place] [address] , Ph. [facility] [id number] [facility] 2021-01-30 01:02:00 2021-01-30 01:02:00 Outpatient [facility]ak e [facility] [id number] [facility] 2021-01-29 04:36:00 2021-01-29 04:36:00 Outpatient [facility] e [facility] [id number] [facility] 2021-01-29 00:00:00 2021-01-29 00:00:00 Guanakito Cuello, YARDMASTER: [address], [facility], [place] [address] , Ph. [facility] [id number] [facility] 2021-01-23 02:28:00 2021-01-23 02:28:00 Outpatient [facility]Blak e [facility] [id number] [facility] 2021-01-23 00:00:00 2021-01-23 00:00:00 Guanakito Cuello, YARDMASTER: [address], [place] [address] , Ph. [facility] [id number] [facility] 2021-01-20 02:30:00 2021-01-20 02:30:00 Outpatient [facility]ak e [facility] [id number] [facility] 2021-01-17 03:53:00 2021-01-17 03:53:00 Outpatient [facility]ak e [facility] [id number] [facility] 2020-04-18 03:14:19 2020-04-18 04:37:00 Emergency Rosa Paul [facility] [id number] [id number] [facility] 2020-04-18 03:14:19 2020-04-18 04:37:00 Emergency X ROSA PAUL [facility] E[facility] [id number] [facility] 2020-04-18 03:14:19 2020-04-18 04:37:00 Emergency Rosa Paul [facility] [id number] 350.1.13.10 [id number] 2020-01-13 22:34:02 2020-01-14 00:22:00 Emergency Stella Peña [facility] [id number] 350.1.13.10 [id number] [id number] [facility] 2020-01-13 22:34:02 2020-01-14 00:22:00 Emergency Stella Peña [facility] [id number] 350.1.13.10 [id number] [id number] 2020-01-13 22:21:00 2020-01-13 22:21:00 Emergency X [facility] ERT [id number] [facility] 2020-01-13 00:00:00 2020-01-13 00:00:00 Orders Only Doctor Unassigned, [place] [facility] 1.2.840.114 350.1.13.10 [id number] [facility] 2020-01-13 00:00:00 2020-01-13 00:00:00 Orders Only Doctor Unassigned, [place] [facility] [id number] 350.1.13.10 [id number] 2019-06-23 19:50:03 2019-06-23 21:26:00 Emergency [facility] [id number] 350.1.13.10 [id number] [facility] 2019-06-23 19:50:03 2019-06-23 21:26:00 Emergency [facility] [id number] [id number] [id number] Results Test Description Test Time Test Comments Results Result Co mments Source [facility]:54:00* Test Item Value Reference Range Interpretation Comme nts APPEARANCE (test code = 6209234562) Clear Clear COLOR (test code = 1086613633) Yellow Yellow PH (test code = 9525115548) 4.8-8.0 SP GRAVITY (test code = 2987249726) 1.003-1.030 GLU U QUAL (test code = 2720916636) Negative Negative BLOOD (test code = 5438903881) Negative Negative KETONES (test code = 7428017017) Negative Negative PROTEIN (test code = 2887-8) Negative Negative UROBILIN (test code = 6051993639) 0.2 mg/dL See_Comment [Automated [employer]] The system which generated this result transmitted reference range: 0-1.0 mg/dL. The reference range was not used to interpret this result as normal/abnormal. BILIRUBIN (test code = 6483683109) Negative Negative NITRITE (test code = 9004067432) Negative Negative LEUK YAYA (test code = 1025344621) Negative Negative RBC/HPF (test code = 0426039022) See_Comment [Automated [employer]] The system which generated this result transmitted reference range: 0 - 3 HPF. The reference range was not used to interpret this result as normal/abnormal. WBC/HPF (test code = 1960421578) See_Comment [Automated [employer]] The system which generated this result transmitted reference range: 0 - 5 HPF. The reference range was not used to interpret this result as normal/abnormal. BACTERIA (test code = 5344021971) Negative Negative Lab Interpretation (test code = 45014-2) Normal [facility] [id number] 01:52:48 Symmetrical arterial and venous flows within [...] have reviewed this studyand agree with the abovereport.[facility]
[2024-08-14] MEDS ORDERED: ONDANSETRON 4 MG/2 ML VIAL ONE (07:22)
[2024-08-14 07:32] LABS: Absolute Lymphocytes (CBC) 2.1 K/uL (0.7-4.9); Absolute Monocytes 0.9 K/uL (0.1-1.3); Absolute Neutrophil 5.3 K/uL (1.8-8.0); Basophils % 0.3 % (0-1.3); Eosinophils % 0.4 % (0-4.4); Hematocrit 40.3 % (39.6-49.0); Lymphocytes % 25.4 % (15.3-44.8); MCH 30.9 pg (27.0-35.0); MCHC 32.3 g/dL (32.0-36.0); MCV 95.7 fL (80-100); MPV 9.9 fL (7.6-11.3); Monocytes % 10.4 % (3.3-12.3); Neutrophils % 63.5 % (41.7-73.7); Platelets 258 thou/uL (152-406); RBC Red Blood Cell Count 4.21 M/uL (4.33-5.43); Red Cell Distribution Width 14.4 % (12.1-15.2)
[2024-08-14] MEDS ORDERED: LORazepam 2 MG/ML VIAL ONE (07:37)
[2024-08-14] MEDS ORDERED: MORPHINE 2 MG/ML SYR ONE (07:38)
[2024-08-14 07:40] LABS: Albumin 4.5 g/dL (3.4-5.0); Albumin/Globulin Ratio 1.5 (1.1-1.8); Anion Gap 6.5 mEq/L (5.0-15.0); Bilirubin Total 2.1 mg/dL (0.2-1.0); Potassium 3.5 mEq/L (3.5-5.1); Protein, Total 7.5 g/dL (6.4-8.2)
--- NOTE | 2024-08-14 08:15 | RAD REPORT ---
EXAMINATION: CT ABDOMEN AND PELVIS WITH CONTRAST CLINICAL INDICATION: ABD PAIN TECHNIQUE: CT abdomen and pelvis was performed, after the administration of IV contrast, as per [facility] protocol. Axial, sagittal and coronal reconstructions were obtained. One or more of the following dose reduction techniques were used: Automated exposure control, adjustment of the mA and k V according to patient size, and iterative reconstruction. Unless otherwise specified, incidental findings do not require dedicated imaging follow-up. COMPARISON: No prior exam. FINDINGS: LOWER CHEST: The visualized lung bases are clear. LIVER: Mild fatty liver is present. No focal lesion or biliary dilatation is seen. Grossly unremark able gallbladder. SPLEEN: Normal size. No focal lesion. PANCREAS: No mass, ductal dilation, or michael-pancreatic fluid. ADRENALS: Normal; no mass. KIDNEYS: Normal size and contour. No hydronephrosis. GASTROINTESTINAL TRACT: No evidence of free air, significant intra-abdominal free fluid, bowel obstru ction or abscess. APPENDIX: Normal appendix. LYMPH NODES: No lymphadenopathy. MUSCULOSKELETAL: No acute or suspicious osseous abnormality. ADDITIONAL FINDINGS: None. IMPRESSION: No acute or concerning abnormalities seen in the abdomen or pelvis. Mild fatty liver.
--- NOTE | 2024-08-14 08:49 | ER ---
Nurse's Notes [facility] Name: Joe Velasquez Age: 29 yrs Sex: Male : 1995 Arrival Date: 08/14/2024 Time: 06:44 Bed 5 Private MD: Diagnosis: Abdominal pain, unspecified;Fatty (change of) liver, not elsewhere classified Presentation: 08/14 07:04 Chief complaint: Patient states: 2 WK INTERMITTENT RLQ PAIN. Coronavirus screen: At bp this time, the client does not indicate any symptoms associated with coronavirus-19. Ebola Screen: No symptoms or risks identified at this time. Initial Sepsis Screen: Does the patient meet any 2 criteria? No. Patient's initial sepsis screen is negative. Does the patient have a suspected source of infection? No. Patient's initial sepsis screen is negative. Risk Assessment: Do you want to hurt yourself or someone else? Patient reports no desire to harm self or others. Onset of symptoms is unknown. 07:04 Method Of Arrival: Ambulatory bp 07:04 Acuity: FABRIZIO 3 bp Triage Assessment: 07:05 General: Appears in no apparent distress. Behavior is cooperative, appropriate for age, bp anxious. Pain: Complains of pain in right lower quadrant. EENT: No deficits noted. Neuro: No deficits noted. Cardiovascular: No deficits noted. Respiratory: No deficits noted. GI: Reports lower abdominal pain. : No signs and/or symptoms were reported regarding the genitourinary system. Derm: No deficits noted. Musculoskeletal: No deficits noted. Historical: - Allergies: 07:05 No Known Allergies; bp - PMHx: 07:05 Anxiety; testicular cyste; testicular varicocle; bp - Immunization history:: Adult Immunizations up to date. - Infectious Disease History:: Denies. - Social history:: Smoking status: Patient denies any tobacco usage or history of. - Family history:: not pertinent. - Hospitalizations: : No recent hospitalization is reported. Screenin:06 [facility] ED Fall Risk Assessment (Adult) History of falling in the last 3 months, bp including since admission No falls in past 3 months (0 pts) Confusion or Disorientation No (0 pts) Intoxicated or Sedated No (0 pts) Impaired Gait No (0 pts) Mobility Assist Device Used No (0 pt) Altered Elimination No (0 pt) Score/Fall Risk Level 0 - 2 = Low Risk. Abuse screen: Denies threats or abuse. Denies injuries from another. Nutritional screening: No deficits noted. Tuberculosis screening: No symptoms or risk factors identified. Assessment: 07:06 General: Appears in no apparent distress. Behavior is cooperative, appropriate for age, bp anxious. 08:49 Reassessment: Patient appears in no apparent distress at this time. Patient is alert, bp oriented x 3, equal unlabored respirations, skin warm/dry/pink. 08:55 GI: Bowel sounds present X 4 quads. Abd is soft X 4 quads. bp Vital Signs: 07:04 BP 137 / 88; Pulse 90; Resp 16; Temp 98; Pulse Ox 100% ; Weight 77.11 kg; Height 5 ft. bp 11 in. ; 08:49 BP 133 / 79; Pulse 79; Resp 16; Pulse Ox 99% ; bp 07:04 Body Mass Index 23.71 (77.11 kg, 180.34 cm) bp ED Course: 06:47 Patient arrived in ED. [id number] 07:01 Cornelius Crowley MD is Attending Physician. rn 07:04 Parviz Canchola, AYUSH is Primary Nurse. bp 07:05 Triage completed. bp 07:05 Arm band placed on. bp 07:06 Patient has correct armband on for positive identification. Bed in low position. Call bp light in reach. 07:18 Initial lab(s) drawn, by me, sent to lab. Inserted saline lock: 20 gauge in right aa5 antecubital area, using aseptic technique. Blood collected. Flushed with 10 mL NS. 07:49 CT Abd/Pelvis - IV Contrast Only In Process Unspecified. EDMS 08:55 No provider procedures requiring assistance completed. IV discontinued, intact, bp bleeding controlled, No redness/swelling at site. Pressure dressing applied. 08:56 Provided Education on: N/A. bp Administered Medications: 07:25 Drug: Ondansetron IVP 4 mg IVP once; over 2 minutes Route: IVP; Site: right antecubital;aa5 07:34 Follow up: Response: No adverse reaction aa5 07:41 Drug: morphine IVP or IV 2 mg IVP once over 4 mins Route: IVP; Infused Over: 4 mins; bp Site: right antecubital; 08:56 Follow up: Response: No adverse reaction bp 07:41 Drug: Ativan IVP 0.5 mg IVP once Route: IVP; Site: right antecubital; bp 08:56 Follow up: Response: No adverse reaction bp Medication: 07:06 VIS not applicable for this client. bp Outcome: 08:49 Discharge ordered by . rn 08:55 Discharged to home ambulatory, with family, bp 08:55 Condition: stable 08:55 Discharge instructions given to patient, Instructed on discharge instructions, follow up and referral plans. Demonstrated understanding of instructions, follow-up care, 08:57 Patient left the ED. bp Signatures: Dispatcher [employer] EDMS Cornelius Crowley MD MD rn Calderon, Audri RN RN aa5 Parviz Canchola RN RN bp Allison Gonzalez
--- NOTE | 2024-08-14 08:49 | EDPHYS ---
Physician Documentation [facility] Name: Joe Velasquez Age: 29 yrs Sex: Male : 1995 Arrival Date: 08/14/2024 Time: 06:44 Bed 5 Private MD: ED Physician Cornelius Crowley HPI: 08/14 07:48 This 29 yrs old Male presents to ER via Ambulatory with complaints of Abdominal Pain, rn Nausea. 07:48 The patient presents to the emergency department with nausea, abdominal pain, of the rn left lower quadrant, described as achy, and does not radiate. Onset: The symptoms/episode began/occurred 2 day(s) ago. Possible causes: unknown. The symptoms are aggravated by nothing. The symptoms are alleviated by nothing. Severity of symptoms: At their worst the symptoms were mild in the emergency department the symptoms are unchanged. The patient has not experienced similar symptoms in the past. Patient reports right lower quadrant abdominal pain for 2 days. Denies any fever. No vomiting. Reports chronic diarrhea. No blood in stool. No trauma. No urological symptoms. No history of kidney stones.. Historical: - Allergies: 07:05 No Known Allergies; bp - PMHx: 07:05 Anxiety; testicular cyste; testicular varicocle; bp - Immunization history:: Adult Immunizations up to date. - Infectious Disease History:: Denies. - Social history:: Smoking status: Patient denies any tobacco usage or history of. - Family history:: not pertinent. - Hospitalizations: : No recent hospitalization is reported. ROS: 07:48 Constitutional: Negative for fever, chills, and weight loss, ENT: Negative for injury, rn pain, and discharge, Cardiovascular: Negative for chest pain, palpitations, and edema, Respiratory: Negative for shortness of breath, cough, wheezing, and pleuritic chest pain, Abdomen/GI: Positive for nausea and right lower quadrant abdominal pain Back: Negative for injury and pain, : Negative for injury, bleeding, discharge, and swelling, MS/Extremity: Negative for injury and deformity, Skin: Negative for injury, rash, and discoloration, Neuro: Negative for headache, weakness, numbness, tingling, and seizure, Exam: 07:48 Constitutional: This is a well developed, well nourished patient who is awake, alert, rn and in no acute distress. Cardiovascular: Regular rate and rhythm. No pulse deficits. Respiratory: No increased work of breathing, no retractions or nasal flaring. Abdomen/GI: Soft, mild right lower quadrant tenderness without guarding or rebound. No masses. Vital Signs: 07:04 BP 137 / 88; Pulse 90; Resp 16; Temp 98; Pulse Ox 100% ; Weight 77.11 kg; Height 5 ft. bp 11 in. ; 08:49 BP 133 / 79; Pulse 79; Resp 16; Pulse Ox 99% ; bp 07:04 Body Mass Index 23.71 (77.11 kg, 180.34 cm) bp MDM: 07:01 Patient medically screened. rn 08:48 Differential diagnosis: Nonspecific abd pain, gastritis, pancreatitis, appendicitis, rn diverticulitis, viral gastroenteritis, gastroenteritis, fatty liver. Data reviewed: vital signs, nurses notes, lab test result(s), radiologic studies, CT scan, and as a result, I will discharge patient. Counseling: I had a detailed discussion with the patient and/or guardian regarding the historical points, exam findings, and any diagnostic results supporting the discharge/admit diagnosis, lab results, radiology results, the need for outpatient follow up, to return to the emergency department if symptoms worsen or persist or if there are any questions or concerns that arise at home. Response to treatment: the patient's symptoms have markedly improved after treatment, and as a result, I will discharge patient. Special discussion: Based on the patient's Hx, exam, and Dx evaluation, there is no indication for emergent surgery or inpatient Tx. It is understood by the patient/guardian that if the Sx's persist or worsen they need to return immediately for re-evaluation. I discussed with the patient/guardian in detail that at this point there is no indication for admission to the hospital. It is understood, however, that if the symptoms persist or worsen the patient needs to return immediately for re-evaluation. ED course: No acute findings and workup. CT shows fatty liver and labs consistent with fatty liver. Recommended diet modification and healthy lifestyle to patient. Specifically no signs of appendicitis or need for emergent antibiotics at this time or surgery.. 08/14 07:11 Order name: CBC with Diff; Complete Time: 08: rn 08/14 07:11 Order name: CMP; Complete Time: rn 08/14 07:11 Order name: Lipase; Complete Time: : rn 08/14 07:11 Order name: CT Abd/Pelvis - IV Contrast Only; Complete Time: 08:23 rn 08/14 07:11 Order name: IV Saline Lock; Complete Time: 07:25 rn 08/14 07:11 Order name: Labs collected and sent; Complete Time: 07:25 rn Administered Medications: 07:25 Drug: Ondansetron IVP 4 mg IVP once; over 2 minutes Route: IVP; Site: right antecubital;aa5 07:34 Follow up: Response: No adverse reaction aa5 07:41 Drug: morphine IVP or IV 2 mg IVP once over 4 mins Route: IVP; Infused Over: 4 mins; bp Site: right antecubital; 08:56 Follow up: Response: No adverse reaction bp 07:41 Drug: Ativan IVP 0.5 mg IVP once Route: IVP; Site: right antecubital; bp 08:56 Follow up: Response: No adverse reaction bp Disposition Summary: 08/14/24 08:49 Discharge Ordered Notes: Location: Home rn Problem: new rn Symptoms: have improved rn Condition: Stable rn Diagnosis - Abdominal pain, unspecified rn - Fatty (change of) liver, not elsewhere classified rn Followup: rn - With: Private Physician - When: As needed - Reason: Recheck today's complaints, Re-evaluation by your physician Discharge Instructions: - Discharge Summary Sheet rn - Abdominal Pain, Adult rn - Fatty Liver Disease rn Forms: - Medication Reconciliation Form rn - Antibiotic maternal child nurse - Prescription Opioid Use rn - Patient Portal Instructions rn - Leadership Thank You Letter rn Signatures: Dispatcher [employer] EDMS Cornelius Crowley MD MD rn Calderon, Audri RN RN aaParviz Ferguson RN RN bp Corrections: (The following items were deleted from the chart) 07:11 07:11 CBC+H.LAB.BRZ ordered. EDMS EDMS 07:11 07:11 COMPREHENSIVE METABOLIC PANEL+C.LAB.BRZ ordered. EDMS EDMS 07:11 07:11 LIPASE+C.LAB.BRZ ordered. EDMS EDMS 07:11 07:11 Urinalysis+U.LAB.BRZ ordered. EDMS EDMS 07:11 07:11 Abdomen Pelvis W Con+CT.RAD.BRZ ordered. EDMS EDMS
[2024-08-14 10:15] VITALS: BP 137/88; TEMP 98; O2SAT 100
== END 2024-08-14 08:57 | disposition home or self-care (01) ==
LOC: ER 06:44
DX: K76.0 Fatty (change of) liver, not elsewhere classified (principal)
CPT/HCPCS: 36415; 74177; 80053; 83690; 85025; 96374; 96375; 99284; J2270; J2405; Q9967